=== PATIENT | female | born 1975 | race Hispanic/Latino ===

== ENCOUNTER 2018-12-14 07:31 | Outpatient (CLI) | payer OTHER ==
--- NOTE | 2018-12-14 09:04 | ULT ---
BILATERAL RENAL ULTRASOUND: Date: 12/14/18 HISTORY: Hypertension, diabetes, proteinuria. FINDINGS: The right kidney measures 11.5 cm in length and the left kidney measures 11.6 cm in length. No focal mass or hydronephrosis is seen on either side. Cortical echogenicity and thickness is normal. The uri nary bladder is unremarkable. IMPRESSION: Normal exam. POS: TREY
== END 2018-12-14 07:32 | disposition home or self-care (01) ==
LOC: BICULT 07:31
PROVIDERS: ATTEND Family Medicine
DX: I10 Essential (primary) hypertension (principal)
CPT/HCPCS: 76770

== ENCOUNTER 2019-06-08 14:04 | Outpatient (CLI) | payer OTHER ==
--- NOTE | 2019-06-08 14:53 | ULT ---
EXAM: Right lower extremity venous Doppler US HISTORY: Right lower extremity edema FINDINGS: Grayscale, color-flow, Doppler evaluation, spectral analysis of the right lower extremity venous stru ctures is performed with 2-D imaging. The right common femoral, superficial femoral, popliteal, posterior tibial, proximal greater saphenous and profunda femoral veins are imaged. There is normal luminal compressibility, flow, and augmentation the visualized deep venous structures of the right lower extremity. IMPRESSION: No evidence of a deep vein thrombosis in the right lower extremity.
== END 2019-06-08 14:05 | disposition home or self-care (01) ==
LOC: BICULT 14:04
PROVIDERS: ATTEND Student in an Organized Health Care Education/Training Program
DX: E11.9 Type 2 diabetes mellitus without complications (principal)

== ENCOUNTER 2020-01-31 10:03 | Inpatient (IN) | payer OTHER ==
[2020-01-31 11:05] LABS: #Basophils 0.1 thou/uL (0.0-0.2); #Eosinphils 0.3 thou/uL (0.0-0.7); #Lymphocytes 0.8 thou/uL (1.20-3.40); #Monocytes 0.3 thou/uL (0.11-0.59); #Neutrophils 5.3 thou/uL (1.40-6.50); %Eosinophils 3.9 % (0.0-10.0); %Lymphocytes 11.6 % (21.0-51.0); %Monocytes 4.7 % (0.0-10.0); %Neutrophils 78.8 % (42.0-75.0); Hemoglobin 8.3 g/dL (12.0-16.0); Mean Corpuscular HGB CONC 30.9 g/dL (32.0-36.0); Mean Corpuscular Hemoglobin 27.2 pg (27.0-31.0); Mean Corpuscular Volume 87.9 fL (78.0-98.0); Mean Platelet Volume 9.8 fL (7.4-10.4); Platelet Count 199 thou/uL (130-400); RBC Distribution Width 13.6 % (11.5-14.5); Red Blood Cell (RBC) Count 3.04 mill/uL (4.20-5.40); White Blood Cell (WBC) Count 6.7 thou/uL (4.8-10.8)
[2020-01-31] MEDS ORDERED: Furosemide 40 MG/4 ML VIAL ONE (11:06)
[2020-01-31] MEDS ORDERED: Metoclopramide HCl 10 MG/2 ML VIAL ONE (11:13)
[2020-01-31] MEDS ORDERED: PROPOFOL 200 MG/20 ML VIAL ONE (11:13)
[2020-01-31] MEDS ORDERED: Ondansetron PF 4 MG/2 ML Vial ONE (11:13)
[2020-01-31] MEDS ORDERED: Lidocaine 1% PF 5 ML VIAL ONE (11:13)
[2020-01-31 11:28] LABS: ALT (SGPT) 30 U/L (8-55); AST (SGOT) 29 U/L (5-34); Albumin 3.7 g/dL (3.5-5.0); Alkaline Phosphatase 171 U/L (40-110); Anion Gap 17 mmol/L (10-20); BUN (Urea Nitrogen) 91 mg/dL (7.0-18.7); Bilirubin, Total 0.4 mg/dL (0.2-1.2); Calc. Creatinine Clearance 0 mL/min (70-130); Calcium 8.8 mg/dL (7.8-10.44); Carbon Dioxide 18 mmol/L (22-29); Chloride 109 mmol/L (98-107); Estimated GFR-MDRD 5; Globulin 3.9 g/dL (2.4-3.5); Glucose 85 mg/dL (70-105); Magnesium 2.1 mg/dL (1.6-2.6); Phosphorus 6.8 mg/dL (2.3-4.7); Potassium 5.1 mmol/L (3.5-5.1); Protein, Total 7.6 g/dL (6.0-8.3); Sodium 139 mmol/L (136-145)
[2020-01-31 11:30] LABS: BHCG - Serum Negative (NEGATIVE); Pregs Control Background? CLEAR/WHITE (CLR/WHITE); Pregs Control Bar Appear? YES (CONTROL BAR)
--- NOTE | 2020-01-31 12:52 | PDOC.FPRHP ---
- History of Present Illness Chief Complaint: Leg swelling, shortness of breath History of Present Illness: 45 year old female with PMH Type II DM, CHF, HTN, PCOS, CKD stage [address] Flores office with lower extremity swelling and shortness of breath, ongoing for several weeks. She was seen at [facility] 01/21 for shortness of breath which has worsened since that time. Patient states she can barely move without becoming significantly short of breath. She denies associated chest pain. Patient sees Dr. Madera with Nephrology. She was told to increase her lasix to 80 mg BID a few days ago, but this has not been effective which is the reason for patient's admission/visit to ED today. Patient states she urinates about 4x/ day. This is less than normal. She states she only urinates a small amount each time. She cannot recall timeframe for which this decrease in urination has occurred. Patient states she discontinued lantus qhs due to low sugars in the morning. Since discontinuing lantus, her BG has been in the low 100's per patient. Patient denies cough, congestion, runny nose, abdominal pain. She endorses lower extremity swelling extending up to abdomen. She denies fever/ chills. She has had an ongoing discussion with nephrology regarding need for dialysis. Given medications are no longer working to control fluid status, decision was made to proceed with dialysis. Dr. Phelps has been consulted and is going to place tunneled catheter. ED Course: Lasix 80 mg IV - Allergies/Adverse Reactions Allergies Allergy/AdvReac Type Severity Reaction Status Date / Time No Known Allergies Allergy Verified 12/21/19 14:23 - Home Medications Medication Instructions Recorded Confirmed Type Aspirin [Ecotrin] 81 mg PO DAILY 01/31/20 01/31/20 History Atorvastatin Calcium 40 mg PO DAILY 01/31/20 01/31/20 History Cholecalciferol (Vitamin D3) 400 units PO DAILY 01/31/20 01/31/20 History [Vitamin D3] Linagliptin [Tradjenta] 5 mg PO DAILY 01/31/20 01/31/20 History NIFEdipine [Nifedipine ER] 60 mg PO BID 01/31/20 01/31/20 History Nebivolol HCl [Bystolic] 20 mg PO DAILY 01/31/20 01/31/20 History - History PMHx: CKD stage 5, Gastroparesis, HTN, DM type II, Obesity, PCOS PSHx: C/S x1 FHx: Mostly unknown. Knows grandmother and grandfather have diabetes and HTN. Social: Roque alcohol, tobacco, drug use - Review of Systems General: reports: weight/appetite/sleep changes (increased weight). denies: fever/chills ENT: denies: nasal congestion, rhinorrhea Respiratory: denies: cough, congestion, shortness of breath Cardiovascular: reports: edema. denies: chest pain, palpitation Gastrointestinal: denies: nausea, vomiting, constipation, abdominal pain Genitourinary: denies: dysuria Skin: denies: rashes, jaundice Musculoskeletal: denies: pain, tenderness Neurological: denies: numbness, syncope Psychological: denies: anxiety, depression - Vital signs BP: 147/86 HR: 75 RR: 25 Tmax: 97.7 Pox: 94% on RA Wt: 99.79 kg - Physical Exam Constitutional: NAD, awake, alert and oriented, well developed HEENT: EOMI, grossly normal vision, grossly normal hearing Heart: RRR, pulses present -Heart: 2+ pitting edema to level of thighs bilaterally, 1/6 systolic murmur -Lungs: Difficult exam due to body habitus, crackles appreciated in bases bilaterally, mildly tachypneic Abdomen: soft, non-tender -Abdomen: Obese Neurological: no focal deficit, CN II-XII intact Skin: no rash/lesions, capillary refill <2 seconds Heme/Lymphatic: no unusual bruising or bleeding, no purpura Psychiatric: normal mood and affect, good judgment and insight, intact recent and remote memory FMR H&P: Results - Labs Result Diagrams: 01/31/20 10:45 01/31/20 10:45 Lab results: WBC 6.7 thou/uL (4.8-10.8) 01/31/20 10:45 Hgb 8.3 g/dL (12.0-16.0) L 01/31/20 10:45 Hct 26.8 % (36.0-47.0) L 01/31/20 10:45 MCV 87.9 fL (78.0-98.0) 01/31/20 10:45 Plt Count 199 thou/uL (130-400) 01/31/20 10:45 Neutrophils % 78.8 % (42.0-75.0) H 01/31/20 10:45 Sodium 139 mmol/L (136-145) 01/31/20 10:45 Potassium 5.1 mmol/L (3.5-5.1) 01/31/20 10:45 Chloride 109 mmol/L (98-107) H 01/31/20 10:45 Carbon Dioxide 18 mmol/L (22-29) L 01/31/20 10:45 BUN 91 mg/dL (7.0-18.7) H 01/31/20 10:45 Creatinine 8.39 mg/dL (0.6-1.1) H 01/31/20 10:45 Glucose 85 mg/dL (70-105) 01/31/20 10:45 Calcium 8.8 mg/dL (7.8-10.44) 01/31/20 10:45 Total Bilirubin 0.4 mg/dL (0.2-1.2) 01/31/20 10:45 AST 29 U/L (5-34) 01/31/20 10:45 ALT 30 U/L (8-55) 01/31/20 10:45 Alkaline Phosphatase 171 U/L (40-110) H 01/31/20 10:45 B-Natriuretic Peptide 900.6 pg/mL (0-100) H 01/31/20 10:45 Serum Total Protein 7.6 g/dL (6.0-8.3) 01/31/20 10:45 Albumin 3.7 g/dL (3.5-5.0) 01/31/20 10:45 - EKG Interpretation EKG: NSR, QT 471, No ST or T wave changes FMR H&P: A/P - Problem List (1) End stage renal disease Current Visit: Yes Status: Acute Code(s): N18.6 - END STAGE RENAL DISEASE (2) HTN (hypertension) Current Visit: Yes Status: Acute Code(s): I10 - ESSENTIAL (PRIMARY) HYPERTENSION (3) Heart failure Current Visit: Yes Status: Acute Code(s): I50.9 - HEART FAILURE, UNSPECIFIED (4) IDDM (insulin dependent diabetes mellitus) Current Visit: No Status: Chronic Code(s): E11.9 - TYPE 2 DIABETES MELLITUS WITHOUT COMPLICATIONS; Z79.4 - DETENTION (CURRENT) USE OF INSULIN - Plan 45 year old female with shortness of breath and leg swelling ESRD - Sent over by Dr. Madera/Antoinette - In need of dialysis; tunneled cath to be placed by Dr. Phelps - Will go for dialysis - Monitor kidney function and fluid status - BNP 900 - Fluid restriction - Permanent access to be initiated during hospitalization - Will consult case management to initiate outpatient dialysis bed placement - PPD testing and HepB screening to be done for patient to get outpatient dialysis placement HTN - Continue medications - Patient to start dialysis today - Monitor BP DM type II - Continue home medications - ACHS accuchecks - CC diet HFpEF - Echo to be repeated; pending - Fluid restriction - Daily weights DVT PPX: Heparin Code Status: Full Dispo: Admit to telemetry. Patient to start dialysis. Monitor respiratory status. Addendum - Attending - Attending Attestation Date/Time: 01/31/20 4810 I personally evaluated the patient and discussed the management with Dr. Christina. I agree with the History, Examination, Assessment and Plan documented above with any addition or exceptions noted below.
[2020-01-31] MEDS ORDERED: Sodium Chloride 0.9% 10 ML ONE ×2 (13:16→18:03)
[2020-01-31] MEDS ORDERED: Lidocaine 2% w/Epinephrine 1:200K 20 ML VIAL ONE (13:16)
[2020-01-31] MEDS ORDERED: Bupivacaine PF 0.5% 30 ML VIAL ONE (13:16)
[2020-01-31] MEDS ORDERED: Heparin 10,000 UNITS/1 ML VIAL ONE (13:16)
[2020-01-31] MEDS ORDERED: PROPOFOL 40 ML ONE (13:31)
[2020-01-31] MEDS ORDERED: Midazolam HCl 2 mg/2 ml Vial ONE (13:31)
[2020-01-31] MEDS ORDERED: Fentanyl 100 MCG/2 ML VIAL ONE ×2 (13:31→18:01)
[2020-01-31 13:48] LABS: HBSAB Concentration 2.64 mIU/mL; HBSAg Index 0.17 S/CO (0-0.99); Hep B Core Total Ab Non-Reactive (NonReactive); Hep B Core Total Index 0.06 S/CO (0-0.79); Hep B Surf AB Non-Reactive (NonReactive); Hep B Surf Ag Non-Reactive S/CO (NonReactive); Hep C IgG Ab Non-Reactive (NonReactive); Hep C Index 0.24 S/CO (0-0.79)
--- NOTE | 2020-01-31 13:51 | CON ---
DATE OF CONSULTATION: 01/31/2020 HISTORY OF PRESENT ILLNESS: Ny Raman is a 45-year-old female, morbidly obese, diabetic, hypertensive, followed by Dr. Madera for chronic kidney disease for some time now, presents to emergency room with anasarca, slight dyspnea, uremic. White count 6 and hemoglobin 8.3. Sodium 139, potassium 5.1, carbon dioxide 18, BUN 91, creatinine 8.39, GFR 5. The patient is n.p.o. She has no known exposures nor symptoms for COVID. I have recommended a hemodialysis catheter and central line. She had a left AC IV present that I had the nurses removed immediately. We will obtain ultrasound vein mapping. We will plan definitive dialysis access next week. ALLERGIES: NONE. SOCIAL HISTORY: Tobacco, none. Alcohol, none. MEDICATIONS: Metformin, caplet complete vitamins, labetalol 300 mg b.i.d., p.r.n. ibuprofen, ferrous sulfate, Pepcid, Augmentin, she is on Tradjenta. PAST SURGICAL HISTORY: in 2014. PAST MEDICAL HISTORY: Diabetes, hypertension, obesity. REVIEW OF SYSTEMS: Ten-point noncontributory. PHYSICAL EXAMINATION: VITAL SIGNS: Blood pressure 160/80, respiratory rate 18, heart rate 80. HEAD, EARS, EYES, NOSE, AND THROAT: Unremarkable. LUNGS: Clear to auscultation. CARDIAC: Regular rate and rhythm without murmur or gallop. ABDOMEN: Soft and obese. EXTREMITIES: Edematous. Palpable radial pulses. Left AC IV removed. LABORATORY DATA: As noted above. ASSESSMENT AND PLAN: 1. Chronic kidney disease culminating to end-stage renal disease, in need of dialysis access and IV access. We will plan placement of a cuffed hemodialysis catheter to initiate dialysis as well as a central line for IV access. We will plan definitive fistula next week. This will allow them to dialyze her over the next few days. 2. Morbid obesity. 3. Metabolic syndrome. 4. Hypertension. 5. Diabetes mellitus. Job ID: [id number]
--- NOTE | 2020-01-31 14:04 | RAD ---
CHEST 1 VIEW: HISTORY: Shortness of breath. COMPARISON: None. FINDINGS: Heart size is enlarged. Large effusions. Mild background edema. No pneumothorax. No acute osseous abnormality. IMPRESSION: Moderate volume overload. POS: [facility]DI
--- NOTE | 2020-01-31 14:12 | CON ---
DATE OF CONSULTATION: 01/31/2020 CONSULTING PHYSICIAN: Fritz Boyd DO REASON FOR CONSULTATION: End-stage renal disease evaluation and care. REASON FOR ADMISSION: Shortness of breath and fluid overload. HISTORY OF PRESENT ILLNESS: A 45-year-old female who has a history of type 2 diabetes, hypertension, and CKD, came to the hospital with above complaints and is being evaluated. The patient is having elevated creatinine. Plan is to start on dialysis. The patient does follow with Dr. Madera. PAST MEDICAL HISTORY: Positive for CKD, stage 5; gastroparesis; hypertension; type 2 diabetes; and obesity. PAST SURGICAL HISTORY: . HOME MEDICATIONS: Reviewed. ALLERGIES: NO KNOWN DRUG ALLERGIES. SOCIAL HISTORY: No smoking, alcohol, or illicit drug abuse. FAMILY HISTORY: No history of kidney disease. REVIEW OF SYSTEMS: The following complete review of systems was negative, unless otherwise mentioned in the HPI or below: CONSTITUTIONAL: Weight loss or gain, ability to conduct usual activities. SKIN: Rash, itching. EYES: Double vision, pain. ENT/MOUTH: Nose bleeding, neck stiffness, pain, tenderness. CARDIOVASCULAR: Palpitations, dyspnea on exertion, orthopnea. RESPIRATORY: Shortness of breath, wheezing, cough, hemoptysis, fever or night sweats. GASTROINTESTINAL: Poor appetite, abdominal pain, heartburn, nausea, vomiting, constipation, or diarrhea. GENITOURINARY: Urgency, frequency, dysuria, nocturia. MUSCULOSKELETAL: Pain, swelling. NEUROLOGIC/PSYCHIATRIC: Anxiety, depression. ALLERGY/IMMUNOLOGIC: Skin rash, bleeding tendency. PHYSICAL EXAMINATION: GENERAL: Reveals an obese female, in no apparent distress. VITAL SIGNS: Temperature is 97.7, pulse 75, respiratory rate 20, and blood pressure . HEENT: Atraumatic, normocephalic. NECK: Supple. CARDIOVASCULAR: S1 and S2 heard. RESPIRATORY: Reduced breath sounds. GASTROINTESTINAL: Abdomen is soft. Obese. MUSCULOSKELETAL: 1+ edema. DERMATOLOGIC: No skin rash. NEUROLOGIC: Alert and awake. PSYCHIATRIC: Mood and affect normal. LABORATORY DATA: Hemoglobin is 8.3. Potassium 5.1, BUN is 91, creatinine is 8.3. ASSESSMENT AND PLAN: 1. End-stage renal disease. Plan to start on dialysis. 2. Edema. We will remove fluid. 3. Acidosis. 4. Mild hyperkalemia. 5. History of hypertension. 6. Elevated BNP. 7. Anemia of chronic disease. Plan is to start on dialysis. We will have Case Management consult for outpatient dialysis placement. Appreciate help from Surgery. We will start her on dialysis once access was placed. All the plans discussed with the patient, and all the questions answered. Thank you for the consult. We will follow. Job ID: [id number]
[2020-01-31] MEDS ORDERED: Ondansetron HCl/PF 4 MG/2 ML Vial IVP PRN (17:05)
[2020-01-31] MEDS ORDERED: Promethazine HCl 25 MG/ML VIAL IM PRN (17:05)
[2020-01-31] MEDS ORDERED: Promethazine HCl 25 MG/ML VIAL SLOW IVP PRN (17:05)
[2020-01-31] MEDS ORDERED: traMADol HCl 50 MG TAB PO PRN (17:21)
[2020-01-31] MEDS ORDERED: Acetaminophen 500 MG TAB PO PRN (17:21)
[2020-01-31] MEDS ORDERED: Ondansetron PF 4 MG/2 ML Vial IVP PRN (17:32)
[2020-01-31] MEDS ORDERED: Tuberculin PPD 0.1 ML VIAL I-DERMAL SCH (17:32)
[2020-01-31] MEDS ORDERED: Ondansetron ODT 4 MG TAB PO PRN (17:32)
--- NOTE | 2020-01-31 18:04 | OP ---
DATE OF PROCEDURE: 01/31/2020 PREOPERATIVE DIAGNOSES: 1. End-stage renal disease. 2. Metabolic syndrome. 3. Diabetes. 4. Hypertension. 5. Need of acute dialysis access. 6. Fluid overload. POSTOPERATIVE DIAGNOSES: 1. End-stage renal disease. 2. Metabolic syndrome. 3. Diabetes. 4. Hypertension. 5. Need of acute dialysis access. 6. Fluid overload. PROCEDURES PERFORMED: 1. Right internal jugular cuffed tunneled hemodialysis catheter, pre-curved AngioDynamics. 2. Left internal jugular triple-lumen catheter, ultrasound and fluoroscopy used. ANESTHESIA: Intravenous sedation and local with 0.5% Marcaine 30 mL mixed with 2% Xylocaine with epinephrine 20 mL. DESCRIPTION OF PROCEDURE: The patient was taken to the operating room, where under intravenous sedation, neck and chest were prepared with ChloraPrep and draped in routine fashion. Local anesthetic was infiltrated in the skin and subcutaneous tissue about the operative site. Ultrasound to visualize both the right and left internal jugular veins, and using a trocar catheter, J-wire was introduced into both jugular veins and skin was enlarged sharply on each side. Stab incision was made over the right chest. Seldinger technique used to place a triple-lumen catheter, placed in the left internal jugular vein and catheter secured with 3-0 nylon suture. Dermabond and sterile dressing applied. Each port aspirated blood, flushed with saline solution. A stab incision was made over the right chest. Using the tunneling device, the pre-curved AngioDynamics catheter tunneled between the 2 incisions, placed the fabric cuff beneath the skin exit site, catheter secured with 2 interrupted suture of 3-0 nylon. Small and medium-sized dilators placed over the J-wire in the internal jugular vein and removed. Dilator and Peel-Away sheath placed over the J-wire into the superior vena cava. Dilator and J-wire removed. Catheter placed with the Peel-Away sheath. Peel-Away sheath was removed. Platysma was approximated with 4-0 Monocryl, skin with subdermal 4-0 Monocryl and [place] glue. Sterile dressings applied. Each port aspirated blood, flushed with saline solution and heparinized saline solution with 1000 units of heparin per mL, indicating volume of the port. Fluoroscopic images revealed good line placement. The patient tolerated the procedure well without complications. Job ID: [id number]
--- NOTE | 2020-01-31 18:56 | RAD ---
PORTABLE CHEST: 01/31/20 HISTORY: Catheter placement. CCU patient with follow-up. Comparison made to portable film performed earlier this morning at 10:47 a.m. Cardiomegaly with bilateral effusions and bibasilar atelectasis again noted. A central line via the left jugular is now in place and has tip overlying the right atrium. There is a dual lumen large central line via the right jugular which also has tip overlying the right atrium. IMPRESSION: Bilateral central lines are now in place. The bilateral effusions and bibasilar opacification has not significantly changed when compared to film earlier today. POS: AGW
--- NOTE | 2020-01-31 20:01 | ULT ---
BILATERAL UPPER EXTREMITY VENOUS DUPLEX EXAM FOR VENOUS MAPPING. 01/31/20 INDICATION: Ultrasound of upper extremity veins performed to assess fistula access. End-stage renal disease. RIGHT UPPER EXTREMITY BRACHIAL ARTERY: 0.44 mm RADIAL ARTERY: 0.28 mm ULNAR ARTERY: 0.20 mm CEPHALIC VEIN Axilla: 0.38 mm Proximal humerus: 0.39 mm Mid Humerus: 0.38 mm Distal Humerus: 0.52 mm Elbow: 0.23 mm Mid Forearm: 0.19 mm BASILIC VEIN Axilla: 0.29 mm Proximal humerus: 0.28 mm Mid Humerus: 0.27 mm Distal Humerus: 0.25 mm Elbow: 0.11 mm Mid Forearm: 0.11 mm LEFT UPPER EXTREMITY BRACHIAL ARTERY: 0.43 mm RADIAL ARTERY: 0.24 mm ULNAR ARTERY: 0.25 mm CEPHALIC VEIN Axilla: 0.46 mm Proximal humerus: 0.37 mm Mid Humerus: 0.32 mm Distal Humerus: 0.45 mm Elbow: 0.18 mm Mid Forearm: 0.18 mm BASILIC VEIN Axilla: 0.18 mm Proximal humerus: 0.19 mm Mid Humerus: 0.23 mm Distal Humerus: 0.21 mm Elbow: 0.19 mm Mid Forearm: 0.14 mm POS: AGW
[2020-02-01 04:13] LABS: #Eosinphils 0.2 thou/uL (0.0-0.7); #Lymphocytes 0.7 thou/uL (1.20-3.40); #Monocytes 0.4 thou/uL (0.11-0.59); #Neutrophils 6.1 thou/uL (1.40-6.50); %Basophils 0.6 % (0.0-1.0); %Eosinophils 3.2 % (0.0-10.0); %Lymphocytes 9.9 % (21.0-51.0); %Monocytes 4.7 % (0.0-10.0); %Neutrophils 81.7 % (42.0-75.0); Hemoglobin 7.3 g/dL (12.0-16.0); Mean Corpuscular HGB CONC 30.6 g/dL (32.0-36.0); Mean Corpuscular Hemoglobin 27.3 pg (27.0-31.0); Mean Corpuscular Volume 89.1 fL (78.0-98.0); Platelet Count 137 thou/uL (130-400); RBC Distribution Width 13.6 % (11.5-14.5); Red Blood Cell (RBC) Count 2.65 mill/uL (4.20-5.40); White Blood Cell (WBC) Count 7.4 thou/uL (4.8-10.8)
[2020-02-01 04:34] LABS: Anion Gap 13 mmol/L (10-20); BUN (Urea Nitrogen) 67 mg/dL (7.0-18.7); Calc. Creatinine Clearance 18 mL/min (70-130); Carbon Dioxide 21 mmol/L (22-29); Chloride 107 mmol/L (98-107); Estimated GFR-MDRD 7; Glucose 93 mg/dL (70-105); Potassium 4.3 mmol/L (3.5-5.1); Sodium 137 mmol/L (136-145)
--- NOTE | 2020-02-01 07:12 | PDOC.FM ---
- Subjective Subjective: Breathing much improved and swelling as well. No chest pain, no complaints this morning - Objective MAR Reviewed: Yes Vital Signs & Weight: Vital Signs (12 hours) Temp Pulse Resp BP Pulse Ox 02/01/20 04:00 98.9 F 77 18 133/70 92 L 02/01/20 00:40 97.4 F L 75 18 150/79 H 01/31/20 23:43 94.3 F L 78 21 H 163/90 H 95 Weight Weight 104.961 kg I&O: 01/31/20 02/01/20 02/02/20 06:59 06:59 06:59 Intake Total 360 Balance 360 Result Diagrams: 02/01/20 03:55 02/01/20 03:54 Phys Exam - Physical Examination Constitutional: NAD resting comfortably on nasal cannula HEENT: moist MMs R tunnel catheter, left IJ Respiratory: no wheezing s3 gilma Gastrointestinal: soft 2+ edema up to inguinal area, bilaterally Neurological: non-focal, moves all 4 limbs Dx/Plan (1) Diabetes mellitus Code(s): E11.9 - TYPE 2 DIABETES MELLITUS WITHOUT COMPLICATIONS Status: Acute (2) Fluid overload Code(s): E87.70 - FLUID OVERLOAD, UNSPECIFIED Status: Acute (3) End stage renal disease Code(s): N18.6 - END STAGE RENAL DISEASE Status: Acute (4) HTN (hypertension) Code(s): I10 - ESSENTIAL (PRIMARY) HYPERTENSION Status: Acute (5) Heart failure Code(s): I50.9 - HEART FAILURE, UNSPECIFIED Status: Acute (6) Hypertension affecting Code(s): O16.9 - UNSPECIFIED MATERNAL HYPERTENSION, UNSPECIFIED TRIMESTER Status: Chronic - Plan Plan: 45 year old female with shortness of breath and leg swelling Fluid overload 2/2 ESRD - Right tunnel cath placed 01/30, vein mapping completed. Plan for fistula next week - Nephro & Gen surg on board, recs appreciated - Had HD 01/30 with 3L removed, plan for HD this morning Cardiac tamponade, likely subacute from uremia -Seen on TTE -Hemodynamically stable -Uremia possible underlying etiology -Will consult cards this AM, recs appreciated Anemia, normocytic -Hb 7.3, likely anemia of chronic disease but will check iron studies HTN - Continue medications - Continue HD per nephro - Monitor BP DM type II - Continue home medications - ACHS accuchecks - CC diet HFpEF - Echo with moderate pericardial effusion & cardiac tamponade-right atrial collapse - Fluid restriction - Daily weights DVT PPX: Heparin Code Status: Full Dispo: >2 midnights Addendum - Attending - Attending Attestation Date/Time: 02/01/20 2295 I personally evaluated the patient and discussed the management with Dr. Denis. I agree with the History, Examination, Assessment and Plan documented above with any addition or exceptions noted below. Patient feeling well, getting HD. She has evidence of tamponade on TTE which has been discussed with cardiology. Due to her stability they are wanting to hold off on any drainage until they can evaluate her. Will need outpatient HD placement.
[2020-02-01] MEDS ORDERED: Docusate 100 MG CAP PO PRN (09:06)
--- NOTE | 2020-02-01 09:59 | PDOC.BPN ---
- Brief Progress Note Discussed case with Dr. Mcelroy over phone and concern for cardiac tamponade with atrial collapse. Dr. Mcelroy has already discussed with Dr. Blair and since patient is clinically improved with HD, BPs stable, there is no need for urgent intervention at this time and okay to undergo HD to see if she improves. He plans to see her this morning to further assess.
[2020-02-01] MEDS ORDERED: traMADol HCl 50 MG TAB PO PRN (11:32)
--- NOTE | 2020-02-01 12:52 | PRG ---
DATE OF SERVICE: 02/01/2020 SUBJECTIVE: Patient was seen and examined at bedside and overnight events noted. Patient denies any shortness of breath or chest pain or palpitation. No history of nausea or vomiting or diarrhea or fever or chills or cramps. OBJECTIVE: GENERAL: This is a well-built female, in no apparent distress. VITAL SIGNS: Temperature . Respiratory rate . Blood pressure 175/97. HEENT: Atraumatic, normocephalic. Oral mucosa is moist. Neck: Supple. CARDIOVASCULAR: S1, S2 heard. Rate and rhythm regular. RESPIRATORY: Clear to auscultation. GASTROINTESTINAL: Abdomen is soft. MUSCULOSKELETAL: No tenderness. No edema. DERMATOLOGIC: No skin rash. NEUROLOGIC: Alert and awake and oriented x3. No focal neurologic deficits. Moving all the extremities. PSYCHIATRIC: Mood and affect normal. LABORATORY DATA: Potassium 4.3, BUN is 67, and creatinine is 6.7. ASSESSMENT AND PLAN: 1. End-stage renal disease. Continue dialysis as tolerated. 2. Edema. We will remove fluid. 3. Acidosis. 4. Mild hyperkalemia. 5. Hypertension. 6. Elevated BNP. 7. Anemia of chronic disease. The patient was seen during dialysis, tolerating well. Follow with Case Management for outpatient placement. Job ID: [id number]
[2020-02-01] MEDS ORDERED: Nebivolol HCl 5 MG TAB PO SCH (13:45)
[2020-02-01] MEDS ORDERED: NIFEdipine XL 60 MG TAB PO SCH ×2 (13:45→21:00)
--- NOTE | 2020-02-01 14:26 | EKG ---
Test Reason : Blood Pressure : / mmHG Vent. Rate : 075 BPM Atrial Rate : 075 BPM P-R Int : 132 ms QRS Dur : 078 ms QT Int : 422 ms P-R-T Axes : -01 018 038 degrees QTc Int : 471 ms Normal sinus rhythm Cannot rule out Anterior infarct , age undetermined Abnormal ECG Confirmed by KATARINA TUCKER DO ([id number]), nozzle tender GISELLE BULLOCK ([id number]) on 02/01/2020 2:25:26 PM Referred By: Confirmed By:KATARINA TUCKER DO
[2020-02-01] MEDS ORDERED: Tuberculin PPD 0.1 ML VIAL I-DERMAL SCH (14:30)
[2020-02-02 05:05] LABS: Anion Gap 16 mmol/L (10-20); BUN (Urea Nitrogen) 43 mg/dL (7.0-18.7); Calc. Creatinine Clearance 24 mL/min (70-130); Carbon Dioxide 20 mmol/L (22-29); Chloride 107 mmol/L (98-107); Estimated GFR-MDRD 10; Glucose 94 mg/dL (70-105); Sodium 138 mmol/L (136-145)
--- NOTE | 2020-02-02 05:42 | CON ---
DATE OF CONSULTATION: 02/01/2020 REASON FOR CONSULTATION: Pericardial effusion. 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 Raman is a very pleasant 45-year-old female, who comes to the hospital for worsening shortness of breath and leg swelling. She is followed by Dr. Madera in Nephrology for chronic kidney disease stage 5. She has been having worsening of her shortness of breath and lower extremity swelling for the last 3 to 4 weeks. She states that her breathing got to the point where she could barely move without feeling short winded, so she decided to come in for evaluation. She has been getting increasing doses of Lasix without any diuresis, so she was admitted and started on hemodialysis. After starting hemodialysis and getting some fluid out, her breathing has significantly improved. During her initial evaluation, an echocardiogram was done that showed a pericardial effusion which was moderate in size with some right atrial collapse, which could be consistent with cardiac tamponade and severe mitral regurgitation. Cardiology is being consulted for this. On my evaluation, Ms. Raman denies any chest pain, tightness, or pressure. She does not feel short of breath anymore. When I am seeing her this morning, she was finishing on her second day of dialysis and she tells me she is feeling significantly better. Her blood pressure has never been low, actually been high in the 160s to 170s. No syncope or presyncope. Significant improvement of her symptoms of shortness of breath and edema with two dialysis treatments. PAST MEDICAL HISTORY: 1. Chronic kidney disease stage 5, probably end-stage renal disease now. 2. Gastroparesis. 3. Hypertension. 4. Type 2 diabetes. 5. Obesity. 6. PCOS. PAST SURGICAL HISTORY: section x1. FAMILY HISTORY: Noncontributory. SOCIAL HISTORY: No alcohol, tobacco, or drugs. OUTPATIENT MEDICATIONS: 1. Aspirin 81 mg a day. 2. Atorvastatin 40 mg at bedtime. 3. Vitamin D3. 4. Tradjenta. 5. Nifedipine 60 mg b.i.d. 6. Nebivolol 20 mg a day. ALLERGIES: NO KNOWN DRUG ALLERGIES. REVIEW OF SYSTEMS: A 12-point review of systems was done and was all negative unless stated in the history of present illness. PHYSICAL EXAMINATION: VITAL SIGNS: Temperature 99.1, pulse 86, respiratory rate 18, sat 98% on 2 L nasal cannula, blood pressure 175/97. GENERAL: Awake, alert, oriented x3. No distress. HEENT: Normocephalic and atraumatic. NECK: Supple. LUNGS: Clear. No JVD. CARDIOVASCULAR: S1 and S2. No S3, S4. Loud sounding S1 and S2. No muffled heart sounds. ABDOMEN: Soft. Positive bowel sounds. EXTREMITIES: Trace edema. SKIN: Warm and dry. LABORATORY DATA: Laboratory work was reviewed. White count of 6, hemoglobin is 8.3, hematocrit of 26, platelet count of 199. Chemistries with sodium of 137, potassium 4.3, chloride of 107, carbon dioxide of 21, BUN of 67, creatinine 6.72 down from 8.39 yesterday on admission. test was negative. TSH was normal. BNP was 900. Echocardiogram was reviewed. EF was at 60% to 65%. There was a moderate-sized pericardial effusion and a left-sided pleural effusion. Right atrial seemed to collapse, which would indicate cardiac tamponade. Clinical correlation is always recommended on this. ASSESSMENT: 1. Pericardial effusion. Clinically, there is no evidence of tamponade. 2. Chronic kidney disease stage 5, now end-stage. 3. Anasarca, improved after dialysis. 4. Hypertension. 5. Type 2 diabetes. PLAN: 1. No indication for evacuation of this fluid at this time. We will plan on re-evaluating her effusion with an echo tomorrow to see if there has been any improvement. I expect her right atrial pressures to decrease with improved fluid status and if that were the case, the pressure in the right side would allow more collapse of the right atrium and if tamponade is the case, would see marked collapse of the right atrium. We will find out tomorrow, but clinically she is not hypotensive. She does not have muffled heart sounds. No JVD. She has significant improvement of her symptoms with hemodialysis which tells me this was just part of her anasarca. 2. Continue hemodialysis per Primary Team. 3. Echocardiogram tomorrow. 4. We will follow. Thank you for letting me participate in the care of this patient. Job ID: [id number]
--- NOTE | 2020-02-02 07:35 | PDOC.FM ---
- Subjective Subjective: Patient reports breathing improved. Still dyspneic in talking with me. Denies chest pain, reports improved LE swelling. Had 2.2L taken off at HD yesterday. - Objective DEC Reviewed: Yes Vital Signs & Weight: Vital Signs (12 hours) Temp Pulse Resp BP Pulse Ox 02/02/20 03:38 98.6 F 78 18 163/84 H 94 L 02/02/20 00:09 96 02/01/20 23:56 77 124/75 02/01/20 19:38 96 02/01/20 19:32 98.1 F 78 14 170/95 H 96 Weight Admit Weight 104.961 kg Weight 100.6 kg I&O: 02/01/20 02/02/20 02/03/20 06:59 06:59 06:59 Intake Total 360 720 Balance 360 720 Result Diagrams: 02/02/20 08:01 02/02/20 04:36 Phys Exam - Physical Examination Constitutional: NAD HEENT: moist MMs, sclera anicteric bibasilar crackles Cardiovascular: RRR s3 Gastrointestinal: soft 2+ edema in BLE Neurological: non-focal, moves all 4 limbs Psychiatric: normal affect, A&O x 3 Dx/Plan (1) Diabetes mellitus Code(s): E11.9 - TYPE 2 DIABETES MELLITUS WITHOUT COMPLICATIONS Status: Acute (2) Fluid overload Code(s): E87.70 - FLUID OVERLOAD, UNSPECIFIED Status: Acute (3) End stage renal disease Code(s): N18.6 - END STAGE RENAL DISEASE Status: Acute (4) HTN (hypertension) Code(s): I10 - ESSENTIAL (PRIMARY) HYPERTENSION Status: Acute (5) Heart failure Code(s): I50.9 - HEART FAILURE, UNSPECIFIED Status: Acute (6) Hypertension affecting Code(s): O16.9 - UNSPECIFIED MATERNAL HYPERTENSION, UNSPECIFIED TRIMESTER Status: Chronic - Plan Plan: 45 year old female with shortness of breath and leg swelling Acute hypoxic respiratory failure 2/2 ESRD fluid overload - Right tunnel cath placed 01/30, vein mapping completed. Plan for fistula next week per Gen Surg. Recs appreciated. - Had HD 01/30 with 3L removed. HD 01/31. Nephro on board, recs appreciated. Cardiac tamponade with severe mitral regurgitation -Seen on TTE, plan for repeat today -Hemodynamically stable -Uremia possible underlying etiology -Cardiology board, recs appreciated ESRD -Tunnel cath in place, HD, nephro on board -Plan for fistula Anemia, Mixed -Hb 7.3 -Iron 17, started ferrous sulfate -Will discuss with Dr. Farias starting EPO HTN - Resume home BP meds - Continue HD per nephro - Monitor BP DM type II - Continue home medications - ACHS accuchecks - CC diet HFpEF - Echo with moderate pericardial effusion & cardiac tamponade-right atrial collapse - Fluid restriction - Daily weights DVT PPX: Heparin Code Status: Full Dispo: >2 midnights Addendum - Attending - Attending Attestation Date/Time: 02/02/20 1117 I personally evaluated the patient and discussed the management with Dr. Denis. I agree with the History, Examination, Assessment and Plan documented above with any addition or exceptions noted below. Patient continues to improve. HD per Nephro, awaiting outpatient placement. Cardiology to repeat Echo today.
[2020-02-02 08:16] LABS: #Eosinphils 0.6 thou/uL (0.0-0.7); #Lymphocytes 1.5 thou/uL (1.20-3.40); #Monocytes 0.6 thou/uL (0.11-0.59); #Neutrophils 5.5 thou/uL (1.40-6.50); %Basophils 0.6 % (0.0-1.0); %Eosinophils 7.5 % (0.0-10.0); %Lymphocytes 17.8 % (21.0-51.0); %Monocytes 7.5 % (0.0-10.0); %Neutrophils 66.6 % (42.0-75.0); Hemoglobin 7.3 g/dL (12.0-16.0); Mean Corpuscular HGB CONC 31.3 g/dL (32.0-36.0); Mean Corpuscular Hemoglobin 27.1 pg (27.0-31.0); Mean Corpuscular Volume 86.6 fL (78.0-98.0); Mean Platelet Volume 10.2 fL (7.4-10.4); Platelet Count 138 thou/uL (130-400); RBC Distribution Width 13.4 % (11.5-14.5); Red Blood Cell (RBC) Count 2.71 mill/uL (4.20-5.40); White Blood Cell (WBC) Count 8.2 thou/uL (4.8-10.8)
[2020-02-02] MEDS ORDERED: READ PPD TEST SITE PO SCH (09:00)
--- NOTE | 2020-02-02 12:28 | PRG ---
DATE OF SERVICE: 02/02/2020 SUBJECTIVE: Patient was seen and examined at bedside and overnight events noted. Patient denies any shortness of breath or chest pain or palpitation. No history of nausea or vomiting or diarrhea or fever or chills or cramps. OBJECTIVE: GENERAL: This is a well-built female, in no apparent distress. VITAL SIGNS: Temperature 98.4. Heart Rate 77. Respiratory rate 18. Blood pressure 177/93. HEENT: Atraumatic, normocephalic. Oral mucosa is moist. NECK: Supple. CARDIOVASCULAR: S1, S2 heard. Rate and rhythm regular. RESPIRATORY: Clear to auscultation. GASTROINTESTINAL: Abdomen is soft. MUSCULOSKELETAL: No tenderness. No edema. DERMATOLOGIC: No skin rash. NEUROLOGIC: Alert and awake and oriented x3. No focal neurologic deficits. Moving all the extremities. PSYCHIATRIC: Mood and affect normal. LABORATORY DATA: Potassium 5.0, BUN is 43, and creatinine is 4.8. ASSESSMENT AND PLAN: 1. End-stage renal disease. Continue dialysis. 2. Edema. 3. Hypertension. 4. Mild hyperkalemia. 5. Anemia. We will start on Epogen. 6. Continue dialysis as tolerated. Job ID: [id number]
[2020-02-02] MEDS ORDERED: Recombivax (HEP-B) 5 MCG/0.5 ML VIAL IM ONE ×2 (12:30→15:07)
[2020-02-02] MEDS: Ferrous Sulfate 325 MG TAB PO SCH (15:03)
[2020-02-02] MEDS: Atorvastatin Calcium 40 MG TAB PO SCH (15:04)
[2020-02-02] MEDS: Alogliptin 25 MG TAB PO SCH (15:04)
[2020-02-02] MEDS: NIFEdipine XL 60 MG TAB PO SCH (15:05)
[2020-02-02] MEDS: Nebivolol HCl 5 MG TAB PO SCH (15:05)
[2020-02-02] MEDS: EPOETIN ALFA-EPBX (ESRD) 10,000 UNIT/ML VIAL IVP SCH (15:06)
--- NOTE | 2020-02-02 16:38 | PDOC.CPN ---
- Subjective Date: 02/02/20 Time: 16:36 Interval history: She feels better but still feels tired and SOB with max exertion, comfortable at rest. - Review of Systems General: reports: fatigue. denies: fever/chills, weight/appetite/sleep changes , night sweats Respiratory: reports: shortness of breath, exercise intolerance. denies: cough , congestion Cardiovascular: denies: chest pain, palpitation, edema, paroxysmal nocturnal dyspnea, orthopnea Gastrointestinal: denies: nausea, vomiting, diarrhea, constipation, abd pain, GI bleeding Musculoskeletal: denies: pain, tenderness, stiffness, swelling, arthritis/ arthralgias Neurological: denies: numbness, syncope, seizure, weakness - Objective Allergies/Adverse Reactions: Allergies Allergy/AdvReac Type Severity Reaction Status Date / Time No Known Allergies Allergy Verified 12/21/19 14:23 Visit Medications: Current Medications Acetaminophen (Tylenol) 1,000 mg PO Q6H PRN PRN Reason: Moderate to Severe Pain (6-10) Alogliptin Benzoate (Alogliptin) 25 mg PO DAILY [facility] Last Admin: 02/02/20 15:04 Dose: 25 mg Aspirin (Ecotrin) 81 mg PO DAILY [facility] Atorvastatin Calcium (Lipitor) 40 mg PO DAILY [facility] Last Admin: 02/02/20 15:04 Dose: 40 mg Cholecalciferol (Vitamin D) 400 units PO DAILY [facility] Docusate Sodium (Colace) 100 mg PO DAILYPRN PRN PRN Reason: Constipation Epoetin Prakash-epbx (Retacrit) 10,000 unit IVP TuThSa [facility] Last Admin: 02/02/20 15:06 Dose: 10,000 unit Ferrous Sulfate (Feosol) 325 mg PO QAM-WM [facility] Last Admin: 02/02/20 15:03 Dose: 325 mg Hepatitis B Vaccine (Engerix-B 20 Mcg/Ml Vial) 20 mcg IM .ONCE ONE Stop: 02/02/20 18:01 Nebivolol (Bystolic) 20 mg PO DAILY [facility] Last Admin: 02/02/20 15:05 Dose: 20 mg Nifedipine (Procardia Xl) 60 mg PO DAILY [facility] Last Admin: 02/02/20 15:05 Dose: 60 mg Read Ppd Test Site 0 each PO ONE [facility] Stop: 02/03/20 09:01 Ondansetron HCl (Zofran Odt) 4 mg PO Q6H PRN PRN Reason: Nausea/Vomiting Ondansetron HCl (Zofran) 4 mg IVP Q6H PRN PRN Reason: Nausea/Vomiting Tramadol HCl (Ultram) 50 mg PO Q12H PRN PRN Reason: Moderate Pain (4-6) Vital Signs & Weight: Vital Signs Temp Pulse Resp BP BP Pulse Ox 02/02/20 15:08 98.0 F 75 18 186/90 H 98 02/02/20 11:15 98.4 F 77 18 177/93 H 95 02/02/20 07:37 98.7 F 75 16 168/88 H 95 Admit Weight 231 lb 6.4 oz Weight 221 lb 12.56 oz - Physical Exam General: alert & oriented x3 HEENT: mucus membranes moist Neck: supple neck Cardiac: regular rate and rhythm Lungs: other (Reduced breath sounds at bases.) Neuro: grossly intact Abdomen: active bowel sounds Extremities: 1+ LE edema Skin: clear Musculoskeletal: no pain - Labs Result Diagrams: 02/02/20 08:01 02/02/20 04:36 - Telemetry Sinus rhythms and dysrhythmias: sinus rhythm - Assessment/Plan Assessment/Plan: 1. Pericardial effusion 2/. Pleural effusion 3. Anasarca 4. ESRD 5. New onset HD. PLAN; - Repeat echo today with stable effusion, not better, collapse of RA slightly better. - No clinical signs of tamponade. - Continue fluid control with HD. - Still significantly fluid up.
[2020-02-03 04:51] LABS: Anion Gap 13 mmol/L (10-20); BUN (Urea Nitrogen) 34 mg/dL (7.0-18.7); Calc. Creatinine Clearance 24 mL/min (70-130); Calcium 7.8 mg/dL (7.8-10.44); Carbon Dioxide 25 mmol/L (22-29); Chloride 102 mmol/L (98-107); Estimated GFR-MDRD 10; Glucose 84 mg/dL (70-105); Potassium 4.3 mmol/L (3.5-5.1); Sodium 136 mmol/L (136-145)
--- NOTE | 2020-02-03 07:20 | PDOC.FM ---
- Subjective Subjective: Patient breathing improved. Leg swelling improved. HD planned for today. No other concerns at this time. No CABALLERO, chest pain, vision changes - Objective MAR Reviewed: Yes Vital Signs & Weight: Vital Signs (12 hours) Temp Pulse Resp BP Pulse Ox 02/03/20 04:20 99.0 F 74 12 159/76 H 95 02/03/20 00:20 96 02/02/20 19:37 99.0 F 78 20 133/73 96 Weight Admit Weight 104.961 kg Weight 100.9 kg I&O: 02/02/20 02/03/20 02/04/20 06:59 06:59 06:59 Intake Total 720 960 Balance 720 960 Result Diagrams: 02/03/20 07:25 02/03/20 04:11 Phys Exam - Physical Examination Constitutional: NAD HEENT: moist MMs, sclera anicteric bibasilar crackles s3 gilma Gastrointestinal: soft Musculoskeletal: no edema Neurological: non-focal, moves all 4 limbs Psychiatric: normal affect, A&O x 3 Dx/Plan (1) Diabetes mellitus Code(s): E11.9 - TYPE 2 DIABETES MELLITUS WITHOUT COMPLICATIONS Status: Acute (2) Fluid overload Code(s): E87.70 - FLUID OVERLOAD, UNSPECIFIED Status: Acute (3) End stage renal disease Code(s): N18.6 - END STAGE RENAL DISEASE Status: Acute (4) HTN (hypertension) Code(s): I10 - ESSENTIAL (PRIMARY) HYPERTENSION Status: Acute (5) Heart failure Code(s): I50.9 - HEART FAILURE, UNSPECIFIED Status: Acute (6) Hypertension affecting Code(s): O16.9 - UNSPECIFIED MATERNAL HYPERTENSION, UNSPECIFIED TRIMESTER Status: Chronic - Plan Plan: 45 year old female with shortness of breath and leg swelling Acute hypoxic respiratory failure 2/2 ESRD fluid overload - Right tunnel cath placed 01/30, vein mapping completed. Plan for fistula next week per Gen Surg. Recs appreciated. - Had HD 01/30 with 3L removed. HD 01/31. HD again today. Nephro on board, recs appreciated. - Wean O2 as tolerated Cardiac tamponade with severe mitral regurgitation -Repeat TTE with moderate sized pericardial effusion with early signs of tamponade. Elevated RV pressure -Hemodynamically stable, cards recs appreciated -Uremia possible underlying etiology ESRD -Tunnel cath in place, HD, nephro on board -Plan for fistula Anemia, Mixed -Hb 7.3 -Iron 17, started ferrous sulfate -Started EPO 5/2 HTN - Resume home BP meds - Continue HD per nephro - Monitor BP DM type II - Continue home medications - ACHS accuchecks - CC diet HFpEF - Echo with moderate pericardial effusion & cardiac tamponade-right atrial collapse - Fluid restriction - Daily weights DVT PPX: Heparin Code Status: Full Dispo: >2 midnights Addendum - Attending - Attending Attestation Date/Time: 02/03/20 121 I personally evaluated the patient and discussed the management with Dr. Denis. I agree with the History, Examination, Assessment and Plan documented above with any addition or exceptions noted below. Patient feeling well. Continues to improve with new initation of HD for ESRD. She also has this possible cardiac tampanade for which she is stable and being followed by cardiology for serial TTE. Work on BP control and outpatient HD setup.
[2020-02-03 08:16] LABS: #Basophils 0.1 thou/uL (0.0-0.2); #Eosinphils 0.5 thou/uL (0.0-0.7); #Lymphocytes 1.4 thou/uL (1.20-3.40); #Monocytes 0.6 thou/uL (0.11-0.59); #Neutrophils 5.2 thou/uL (1.40-6.50); %Basophils 1.2 % (0.0-1.0); %Eosinophils 5.9 % (0.0-10.0); %Lymphocytes 17.5 % (21.0-51.0); %Monocytes 8.2 % (0.0-10.0); %Neutrophils 67.1 % (42.0-75.0); Hemoglobin 7.3 g/dL (12.0-16.0); Mean Corpuscular HGB CONC 31.1 g/dL (32.0-36.0); Mean Corpuscular Hemoglobin 27.3 pg (27.0-31.0); Mean Corpuscular Volume 87.6 fL (78.0-98.0); Platelet Count 123 thou/uL (130-400); RBC Distribution Width 13.3 % (11.5-14.5); Red Blood Cell (RBC) Count 2.69 mill/uL (4.20-5.40); White Blood Cell (WBC) Count 7.7 thou/uL (4.8-10.8)
[2020-02-03] MEDS ORDERED: Alogliptin 25 MG TAB PO SCH (09:00)
[2020-02-03] MEDS ORDERED: READ PPD TEST SITE PO SCH (09:00)
[2020-02-03] MEDS: Alogliptin 25 MG TAB PO SCH (09:34)
[2020-02-03] MEDS: Cholecalciferol (Vitamin D3) 400 UNITS TAB PO SCH (09:35)
[2020-02-03] MEDS: Aspirin 81 mg Enteric Coated Tablet PO SCH (09:35)
[2020-02-03] MEDS: Ferrous Sulfate 325 MG TAB PO SCH (09:43)
[2020-02-03] MEDS: Atorvastatin Calcium 40 MG TAB PO SCH (09:44)
[2020-02-03] MEDS: Nebivolol HCl 5 MG TAB PO SCH ×3 (09:46→12:53)
[2020-02-03] MEDS: NIFEdipine XL 60 MG TAB PO SCH ×2 (09:46→12:47)
--- NOTE | 2020-02-03 13:55 | PDOC.CPN ---
- Subjective Date: 02/03/20 Time: 13:54 Interval history: Doing ok. Unchanged from yesterday. Still fluid up significantly. - Review of Systems General: denies: fever/chills, weight/appetite/sleep changes, night sweats, fatigue Respiratory: reports: shortness of breath. denies: cough, congestion, exercise intolerance Cardiovascular: reports: edema. denies: chest pain, palpitation, paroxysmal nocturnal dyspnea, orthopnea Gastrointestinal: denies: nausea, vomiting, diarrhea, constipation, abd pain, GI bleeding Musculoskeletal: denies: pain, tenderness, stiffness, swelling, arthritis/ arthralgias Neurological: denies: numbness, syncope, seizure, weakness - Objective Allergies/Adverse Reactions: Allergies Allergy/AdvReac Type Severity Reaction Status Date / Time No Known Allergies Allergy Verified 12/21/19 14:23 Visit Medications: Current Medications Acetaminophen (Tylenol) 1,000 mg PO Q6H PRN PRN Reason: Moderate to Severe Pain (6-10) Alogliptin Benzoate (Alogliptin) 6.25 mg PO DAILY [facility] Aspirin (Ecotrin) 81 mg PO DAILY [facility] Last Admin: 02/03/20 09:35 Dose: 81 mg Atorvastatin Calcium (Lipitor) 40 mg PO DAILY [facility] Last Admin: 02/03/20 09:44 Dose: 40 mg Cholecalciferol (Vitamin D) 400 units PO DAILY [facility] Last Admin: 02/03/20 09:35 Dose: 400 units Docusate Sodium (Colace) 100 mg PO DAILYPRN PRN PRN Reason: Constipation Epoetin Prakash-epbx (Retacrit) 10,000 unit IVP TuThSa [facility] Last Admin: 02/02/20 15:06 Dose: 10,000 unit Ferrous Sulfate (Feosol) 325 mg PO QAM-WM [facility] Last Admin: 02/03/20 09:43 Dose: 325 mg Nebivolol (Bystolic) 20 mg PO DAILY [facility] Last Admin: 02/03/20 12:53 Dose: 20 mg Nifedipine (Procardia Xl) 60 mg PO DAILY [facility] Last Admin: 02/03/20 12:47 Dose: 60 mg Ondansetron HCl (Zofran Odt) 4 mg PO Q6H PRN PRN Reason: Nausea/Vomiting Ondansetron HCl (Zofran) 4 mg IVP Q6H PRN PRN Reason: Nausea/Vomiting Tramadol HCl (Ultram) 50 mg PO Q12H PRN PRN Reason: Moderate Pain (4-6) Vital Signs & Weight: Vital Signs Temp Pulse Resp BP BP Pulse Ox 02/03/20 12:47 73 176/87 H 02/03/20 12:00 98.2 F 73 16 176/87 H 96 02/03/20 09:46 74 178/95 H 02/03/20 08:00 98.9 F 76 16 178/95 H 95 02/03/20 04:20 99.0 F 74 12 159/76 H 95 Admit Weight 231 lb 6.4 oz Weight 222 lb 7.143 oz - Physical Exam General: alert & oriented x3 HEENT: mucus membranes moist Neck: supple neck Cardiac: regular rate and rhythm Lungs: decreased breath sounds Neuro: grossly intact Abdomen: active bowel sounds Extremities: other: (3+ edema bilat.) Skin: clear Musculoskeletal: no pain - Labs Result Diagrams: 02/03/20 07:25 02/03/20 04:11 - Telemetry Sinus rhythms and dysrhythmias: sinus rhythm - Assessment/Plan Assessment/Plan: 1. Pericardial effusion 2. Pleural effusion 3. Anasarca 4. ESRD 5. New onset HD. PLAN; - No clinical signs of tamponade. - Continue fluid control with HD. - Still significantly fluid up. - Would try to get more fluid out before discharge.
[2020-02-03] MEDS ORDERED: Labetalol HCl 100 MG/20 ML VIAL SLOW IVP PRN (16:30)
--- NOTE | 2020-02-03 16:34 | PRG ---
DATE OF SERVICE: 02/03/2020 SUBJECTIVE: Patient was seen and examined at bedside and overnight events noted. Patient denies any shortness of breath or chest pain or palpitation. No history of nausea or vomiting or diarrhea or fever or chills or cramps. OBJECTIVE: GENERAL: This is a well-built female, in no apparent distress. VITAL SIGNS: Temperature 98.2. Heart rate 73. Respiratory rate 16. Blood pressure 176/87. HEENT: Atraumatic, normocephalic. Oral mucosa is moist. NECK: Supple. CARDIOVASCULAR: S1, S2 heard. Rate and rhythm regular. RESPIRATORY: Clear to auscultation. GASTROINTESTINAL: Abdomen is soft. MUSCULOSKELETAL: No tenderness. No edema. DERMATOLOGIC: No skin rash. NEUROLOGIC: Alert and awake and oriented x3. No focal neurologic deficits. Moving all the extremities. PSYCHIATRIC: Mood and affect normal. LABORATORY DATA: Potassium 4.3, BUN is 34, and creatinine is 4.6. ASSESSMENT AND PLAN: 1. End-stage renal disease. Continue dialysis as tolerated. 2. Edema. 3. Hypertension. 4. Mild hyperkalemia . 5. Anemia of chronic disease. Continue Epogen. Continue dialysis as tolerated. Follow with Case Management for outpatient placement. Job ID: [id number]
[2020-02-04 04:50] LABS: #Basophils 0.1 thou/uL (0.0-0.2); #Eosinphils 0.5 thou/uL (0.0-0.7); #Lymphocytes 1.2 thou/uL (1.20-3.40); #Monocytes 0.6 thou/uL (0.11-0.59); #Neutrophils 5.7 thou/uL (1.40-6.50); %Basophils 0.9 % (0.0-1.0); %Eosinophils 6.4 % (0.0-10.0); %Lymphocytes 14.8 % (21.0-51.0); %Monocytes 7.5 % (0.0-10.0); %Neutrophils 70.3 % (42.0-75.0); Hemoglobin 7.5 g/dL (12.0-16.0); Mean Corpuscular HGB CONC 31.2 g/dL (32.0-36.0); Mean Corpuscular Hemoglobin 27.6 pg (27.0-31.0); Mean Corpuscular Volume 88.4 fL (78.0-98.0); Mean Platelet Volume 10.3 fL (7.4-10.4); Platelet Count 131 thou/uL (130-400); RBC Distribution Width 13.2 % (11.5-14.5); Red Blood Cell (RBC) Count 2.72 mill/uL (4.20-5.40); White Blood Cell (WBC) Count 8.2 thou/uL (4.8-10.8)
[2020-02-04] MEDS ORDERED: Propofol 500 MG/50 ML VIAL ONE (06:25)
[2020-02-04] MEDS ORDERED: Fentanyl 100 MCG/2 ML VIAL ONE ×2 (06:25→06:54)
[2020-02-04] MEDS ORDERED: Protamine Sulfate 50 MG/5 ML VIAL ONE (06:46)
[2020-02-04] MEDS ORDERED: Ondansetron HCl/PF 4 MG/2 ML Vial IVP PRN (06:46)
[2020-02-04] MEDS ORDERED: Heparin 5,000 UNITS/ML VIAL ONE (06:46)
[2020-02-04] MEDS ORDERED: Lidocaine 1% w/Epinephrine 1:100K 20 ML VIAL ONE (06:46)
[2020-02-04] MEDS ORDERED: Bupivacaine PF 0.5% 30 ML VIAL ONE (06:46)
[2020-02-04] MEDS ORDERED: Promethazine HCl 25 MG/ML VIAL IM PRN (06:46)
[2020-02-04] MEDS ORDERED: Promethazine HCl 25 MG/ML VIAL SLOW IVP PRN (06:46)
--- NOTE | 2020-02-04 06:52 | PDOC.FM ---
- Subjective Subjective: Feeling well. Denies SOB. Reports some throat irritation related to intubation for surgery. Tolerated dialysis well. Reports fistula placement was unsuccessful. - Objective MAR Reviewed: Yes Vital Signs & Weight: Vital Signs (12 hours) Temp Pulse Resp BP Pulse Ox 02/04/20 04:00 98.5 F 77 16 152/78 H 02/04/20 00:46 94 L 02/03/20 20:00 98.4 F 72 16 166/91 H 95 Weight Admit Weight 104.961 kg Weight 100.017 kg I&O: 02/02/20 02/03/20 02/04/20 06:59 06:59 06:59 Intake Total 223 569 8663 Balance 210 645 7575 Result Diagrams: 02/04/20 04:33 02/03/20 04:11 Dx/Plan - Plan Plan: 45yo female admitted for acute hypoxic resp failure Acute hypoxic respiratory failure /2 ESRD fluid overload - Right tunnel cath placed 01/30, vein mapping completed. Fistula placement unsuccessful - HD 01/30, 01/31, 02/02. Nephro on board, apprec recs - Wean O2 as tolerated Cardiac tamponade with severe mitral regurgitation - Repeat TTE with moderate sized pericardial effusion with early signs of tamponade. Elevated RV pressure - Hemodynamically stable, cards recs appreciated - Uremia possible underlying etiology ESRD - Tunnel cath in place, HD, nephro on board - Plan for fistula Anemia, Mixed - Hb 7.5 - Iron 17, started ferrous sulfate - Started EPO 02/01 HTN - Continue home BP meds - Continue HD per nephro DM type II - Continue home medications - ACHS accuchecks - CC diet HFpEF - Echo with moderate pericardial effusion & cardiac tamponade-right atrial collapse. No clinical signs. Cards following - Fluid restriction/Daily weights DVT PPX: Heparin Code Status: Full Addendum - Attending - Attending Attestation Date/Time: 02/04/20 1700 I personally evaluated the patient and discussed the management with Dr. Alexandre I agree with the History, Examination, Assessment and Plan documented above with any addition or exceptions noted below- Patient seen in hemodialysis. Denies any complaints. Afebrile VSS. A/P: 1) ESRD on HD- continue HD; plans as per surgery and nephrology. 2) HTN- continue home meds.
[2020-02-04] MEDS ORDERED: Midazolam HCl 2 mg/2 ml Vial ONE (06:54)
[2020-02-04] MEDS ORDERED: SUGAMMADEX SODIUM 200 MG/2 ML VIAL ONE (08:44)
[2020-02-04] MEDS ORDERED: Albuterol Sulfate HFA (OR ONLY) ONE (09:16)
[2020-02-04] MEDS ORDERED: Rocuronium Bromide 10 MG/ML (10ML VIAL) ONE (09:40)
[2020-02-04] MEDS ORDERED: PROPOFOL 200 MG/20 ML VIAL ONE (09:40)
[2020-02-04] MEDS ORDERED: Ondansetron PF 4 MG/2 ML Vial ONE (09:40)
--- NOTE | 2020-02-04 09:43 | OP ---
DATE OF PROCEDURE: 02/04/2020 PREOPERATIVE DIAGNOSIS: End-stage renal disease. POSTOPERATIVE DIAGNOSIS: End-stage renal disease. PROCEDURE PERFORMED: Left arm primary fistula. Ramona type wrist. Cephalic vein dilated with 3.5 mm coronary dilator. Proximal forearm explored. Vein was so large that wrist fistula formed as it was more than adequate contrary to vein mapping. ANESTHESIA: Failed regional general, local 0.5% Marcaine 30 mL, 1% Xylocaine with epinephrine 20 mL. DESCRIPTION OF PROCEDURE: The patient was taken to the operating room, where under partial regional anesthesia and converted to general, right upper extremity was prepared with ChloraPrep and draped in routine fashion. Vein mapping has suggested distal veins in wrist to be inadequate. Incision was made in the proximal volar forearm below the antecubital fossa, carried down through the skin and subcutaneous tissue and a very large antecubital vein identified. It was very large, thus incision was made at the wrist longitudinally and cephalic vein was more than adequate, dissected free, and distal vein ligated with 3-0 silk tie, divided, spatulated, and interrogated with coronary dilators, passing coronary dilators from 1.5-3 mm coronary dilator throughout the length of the dilator without obstruction. This flushed with heparinized saline solution. The patient was given 6000 units of heparin intravenously. Radial artery dissected free. Branches were divided between 4-0 silk ties and clips and proximal and distal control gained with vascular clamps. Longitudinal arteriotomy was made, elongated sharply for 2.5 cm anastomosis. End vein accordingly was spatulated and anastomosed to the radial artery with continuous suture of 6-0 Prolene completing the anastomosis. Vascular clamps were released. There was excellent flow in the fistula, interrogated by Doppler throughout the cephalic vein in the forearm. Good hemostasis was noted. Vein mobilized, proximal branches divided between clips and 4-0 silk ties and clips. All branches that I could see were divided or clipped. Doppler interrogation was noted. The patient was given 25 mg of protamine intravenously by Anesthesia. Subcutaneous tissues of both wounds were approximated with 3-0 Monocryl, skin with subdermal 4-0 Monocryl and [place] glue applied. Job ID: [id number]
--- NOTE | 2020-02-04 10:23 | PRG ---
DATE OF SERVICE: 02/04/2020 SUBJECTIVE: A 45-year-old female, being seen for end-stage renal disease. The patient denied nausea, vomiting, or chest pain. OBJECTIVE: General: The patient is awake and alert. Vital Signs: Afebrile, pulse 79, breathing 16, blood pressure 152/78. HEENT: Head normocephalic and atraumatic. Eyes intact, no ulcers. Nose intact, no ulcers. Ears intact, no ulcers. Neck: Supple. No JVD. Chest: Symmetrical and clear. Cardiovascular: Shows S1 and S2, no rub, no murmur. Gastrointestinal: Abdomen is soft, bowel sounds positive. Extremities: Show no edema or ulcers. Skin: Shows no rash or petechiae. Musculoskeletal: Shows no joint swelling or stiffness. Genitourinary: Shows no Pacheco or CVA tenderness. Neurologic: Motor intact. Cranial nerves intact. LABORATORY DATA: Hemoglobin 7.5. ASSESSMENT AND PLAN: 1. Stage 6 chronic kidney disease, plan dialysis. 2. Hypertension, stable. 3. Anemia. We will give Epogen. 4. Medications based on GFR are appropriate. Job ID: [id number]
[2020-02-04] MEDS: Alogliptin 6.25 MG TAB PO SCH (11:34)
[2020-02-04] MEDS: Atorvastatin Calcium 40 MG TAB PO SCH (17:17)
[2020-02-04] MEDS: Cholecalciferol (Vitamin D3) 400 UNITS TAB PO SCH (17:17)
[2020-02-04] MEDS: Aspirin 81 mg Enteric Coated Tablet PO SCH (17:17)
[2020-02-04] MEDS: Ferrous Sulfate 325 MG TAB PO SCH (17:18)
[2020-02-04] MEDS: NIFEdipine XL 60 MG TAB PO SCH (17:19)
[2020-02-04] MEDS ORDERED: Nebivolol HCl 5 MG TAB PO SCH (17:30)
--- NOTE | 2020-02-04 19:46 | PQF ---
DATE: 02-04-20 ATTN: DR. BLANCA JAY Please exercise your independent, professional judgment in responding to the clarification form. Clinical indicators are provided on the bottom of this form for your review Please check appropriate box(s): HEART FAILURE: A. ACUITY [ ] Acute [ x ] Acute on Chronic [ ] Chronic B. TYPE [ ] Systolic / HFrEF [x] Diastolic / HFpEF [ ] Combined Systolic / Diastolic [ ] Fluid overload due to ESRD ( Not due to CHF) [ ] Other diagnosis [ ] Unable to determine In addition, please specify: Present on Admission (POA): [x] Yes [ ] No [ ] Unable to determine For continuity of documentation, please document condition throughout progress notes and discharge summary. Thank You. CLINICAL INDICATORS - SIGNS / SYMPTOMS / LABS / RESULTS AND LOCATION IN EMR: H&P 02-04-20: HX OF CHF, DM 2, CKD5, PRESENTS WITH SOB AND LOWER EXTREMITY SWELLING, INCREASED WEIGHT H&P 02-04-20: ESRD, HTN, ACUTE HEART FAILURE, DM 2; IN NEED OF DIALYSIS, MONITOR KIDNEY AND FLUID STATUS, BNP 900, FLUID RESTRICTION, DAILY WEIGHTS ECHO 01-31-20: THERE IS MODERATE PERICARDIAL EFFUSION, L PLEURAL EFFUSION, EF ESTIMATED 60-65% RISKS FACTORS / RESULTS AND LOCATION IN EMR: H&P 02-04-20: HX OF CHF, DM 2, CKD5, PRESENTS WITH SOB AND LOWER EXTREMITY SWELLING, INCREASED WEIGHT TREATMENTS / RESULTS AND LOCATION IN EMR: H&P: 01-06-20: LASIX 80 MG IV ECHO 01-31-20 (This form is maintained as a part of the permanent medical record) 2014 [email or web address]. All Rights Reserved [email or web address]
--- NOTE | 2020-02-05 05:57 | PDOC.FM ---
- Subjective Subjective: Feeling well this morning. Tolerated dialysis yesterday. Denies SOB, chest pain. Reports diagnosed with DM in 2010 and CKD in 2017. - Objective MAR Reviewed: Yes Vital Signs & Weight: Vital Signs (12 hours) Temp Pulse Resp BP Pulse Ox 02/05/20 03:58 98.5 F 83 20 171/94 H 96 02/04/20 20:00 98.0 F 74 16 148/73 H 92 L Weight Admit Weight 104.961 kg Weight 97.7 kg I&O: 02/03/20 02/04/20 02/05/20 06:59 06:59 06:59 Intake Total 960 1840 790 Output Total 5000 Balance 960 1840 -4210 Result Diagrams: 02/05/20 07:23 02/03/20 04:11 Phys Exam - Physical Examination Constitutional: NAD HEENT: moist MMs Neck: supple Respiratory: no wheezing Cardiovascular: RRR, no significant murmur Gastrointestinal: soft, non-tender Musculoskeletal: edema present Neurological: moves all 4 limbs incisions from fistula attempt Psychiatric: normal affect Skin: no rash Dx/Plan - Plan Plan: 45yo female admitted for acute hypoxic resp failure Acute hypoxic respiratory failure 2/2 ESRD fluid overload - Right tunnel cath placed 01/30, vein mapping completed. Fistula placement unsuccessful - HD 01/30, 01/31, 02/02. Nephro on board, apprec recs - Wean O2 as tolerated Cardiac tamponade with severe mitral regurgitation - Repeat TTE with moderate sized pericardial effusion with early signs of tamponade. Elevated RV pressure - Hemodynamically stable, cards recs appreciated - Uremia possible underlying etiology ESRD - Tunnel cath in place, HD, nephro on board - Plan for fistula Anemia, Mixed - Hb 6.9, transfuse today, possibly with HD if she gets it today. - Started EPO 02/01, Continue ferrous sulfate HTN - Continue home BP meds, labetalol PRN - Continue HD per nephro DM type II - Continue home medications - ACHS accuchecks - CC diet HFpEF - Echo with moderate pericardial effusion & cardiac tamponade-right atrial collapse. No clinical signs. Cards following - Fluid restriction/Daily weights DVT PPX: Heparin Code Status: Full Addendum - Attending - Attending Attestation Date/Time: 02/05/20 1214 I personally evaluated the patient and discussed the management with Dr. Alexandre I agree with the History, Examination, Assessment and Plan documented above with any addition or exceptions noted below- Patient without complaints. Afebrile VSS. A/P: 1) ESRD - continue HD as per nephrology; awaiting approval for dialysis chair 2) Anemia- will transfuse 1u pRBCs. 3) HTN- continue to adjust meds.
[2020-02-05 07:33] LABS: #Basophils 0.1 thou/uL (0.0-0.2); #Eosinphils 0.6 thou/uL (0.0-0.7); #Lymphocytes 1.3 thou/uL (1.20-3.40); #Monocytes 0.1 thou/uL (0.11-0.59); #Neutrophils 8.5 thou/uL (1.40-6.50); %Basophils 0.9 % (0.0-1.0); %Eosinophils 5.4 % (0.0-10.0); %Lymphocytes 12.6 % (21.0-51.0); %Monocytes 0.9 % (0.0-10.0); %Neutrophils 80.1 % (42.0-75.0); Hemoglobin 6.9 g/dL (12.0-16.0); Mean Corpuscular HGB CONC 30.8 g/dL (32.0-36.0); Mean Corpuscular Hemoglobin 27.4 pg (27.0-31.0); Mean Corpuscular Volume 88.7 fL (78.0-98.0); Mean Platelet Volume 9.2 fL (7.4-10.4); Platelet Count 152 thou/uL (130-400); RBC Distribution Width 13.4 % (11.5-14.5); Red Blood Cell (RBC) Count 2.53 mill/uL (4.20-5.40); White Blood Cell (WBC) Count 10.6 thou/uL (4.8-10.8)
[2020-02-05] MEDS: Ferrous Sulfate 325 MG TAB PO SCH (08:57)
[2020-02-05] MEDS: Aspirin 81 mg Enteric Coated Tablet PO SCH (08:57)
[2020-02-05] MEDS: Nebivolol HCl 5 MG TAB PO SCH (08:57)
[2020-02-05] MEDS: NIFEdipine XL 60 MG TAB PO SCH ×2 (08:58→21:06)
[2020-02-05] MEDS: Cholecalciferol (Vitamin D3) 400 UNITS TAB PO SCH (08:58)
[2020-02-05] MEDS: Atorvastatin Calcium 40 MG TAB PO SCH (08:58)
[2020-02-05] MEDS: Alogliptin 6.25 MG TAB PO SCH (08:58)
--- NOTE | 2020-02-05 12:47 | PRG ---
DATE OF SERVICE: 02/05/2020 SUBJECTIVE: A 45-year-old female, being seen for end-stage renal disease. The patient denied nausea, vomiting, or chest pain. OBJECTIVE: General: The patient is awake, alert. Vital Signs: Afebrile, pulse 76, breathing 16, blood pressure 179/93. HEENT: Head normocephalic and atraumatic. Eyes intact, no ulcers. Nose intact, no ulcers. Ears intact, no ulcers. Neck: Supple. No JVD. Chest: Symmetrical and clear. Cardiovascular: Shows S1 and S2, no rub, no murmur. Gastrointestinal: Abdomen is soft, bowel sounds positive. Extremities: Show no edema or ulcers. Skin: Shows no rash or petechiae. Musculoskeletal: Shows no joint swelling or stiffness. Genitourinary: Shows no Pacheco or CVA tenderness. Neurologic: Motor intact. Cranial nerves intact. LABORATORY DATA: Reviewed. ASSESSMENT AND PLAN: 1. Stage 6 chronic kidney disease, continue hemodialysis. 2. Hypertension, stable. 3. Anemia, agree with transfusion. 4. Pericardial effusion and possible tamponade. I will plan regular dialysis and order 2D echo. This was discussed with Cardiology. Job ID: [id number]
[2020-02-05] MEDS: EPOETIN ALFA-EPBX (ESRD) 10,000 UNIT/ML VIAL IVP SCH (15:45)
--- NOTE | 2020-02-05 17:29 | PRG ---
DATE OF SERVICE: 02/05/2020 Ny Raman is doing well today. Postoperatively, her right Ramona fistula has good thrill and bruit. Incision was made in her proximal forearm below the antecubital fossa, finding a vein of excellent caliber, so large that exploration of the wrist was undertaken, and a large appropriate size vein appreciated contrary to ultrasound vein mapping preoperatively. Ramona fistula formed to the wrist. She has good hand function. She has good thrill and bruit in her Ramona fistula. At this point, she should exercise her arm without restraint. The patient can be discharged home anytime from a surgical standpoint once outpatient dialysis is arranged. I will see her in my office in 3 to 4 weeks. Job ID: [id number]
[2020-02-05 21:09] LABS: Hemoglobin 9.4 g/dL (12.0-16.0); Platelet Count 146 thou/uL (130-400)
--- NOTE | 2020-02-06 07:24 | PDOC.FM ---
- Subjective Subjective: Feeling well this morning, denies SOB, chest pain. - Objective MAR Reviewed: Yes Vital Signs & Weight: Vital Signs (12 hours) Temp Pulse Resp BP BP Pulse Ox 02/06/20 05: 94 L 02/06/20 04:00 98.8 F 86 20 162/80 H 92 L 02/05/20 23:30 82 161/89 H 02/05/20 21:02 98.7 F 78 16 162/84 H 96 Weight Admit Weight 104.961 kg Weight 95.8 kg I&O: 02/05/20 02/06/20 02/07/20 06:59 06:59 06:59 Intake Total 790 1600 Output Total 5000 Balance -4210 1600 Result Diagrams: 02/05/20 20:50 02/03/20 04:11 Phys Exam - Physical Examination Constitutional: NAD HEENT: moist MMs Neck: supple Respiratory: no wheezing, clear to auscultation bilateral Cardiovascular: RRR Right arm fistula with bruit and thrill Gastrointestinal: soft, non-tender Musculoskeletal: pulses present Neurological: non-focal, moves all 4 limbs Psychiatric: normal affect, A&O x 3 Skin: no rash Dx/Plan - Plan Plan: 45yo female admitted for acute hypoxic resp failure Acute hypoxic respiratory failure 2/2 ESRD fluid overload - Right tunnel cath placed 01/30. Fistula in R arm 02/03 - HD 01/30, 01/31, 02/02. Nephro on board, apprec recs - Wean O2 as tolerated - Dialysis today Moderate pericardial effusion 2/2 Uremia with severe mitral regurgitation - Repeat echo with moderate sized pericardial effusion with early signs of tamponade. Elevated RV pressure - Hemodynamically stable, cards recs appreciated - Plan for echo today and daily dialysis. ESRD - Tunnel cath in place, HD, nephro on board. Dialysis today - Fistula 02/03 Anemia, Mixed - Hb 6.9-> 9.4 s/p 1U pRBCs - Continue EPO 5/2 and ferrous sulfate HTN - Continue home BP meds, labetalol PRN - Continue HD per nephro DM type II - Continue home meds - ACHS accuchecks - CC diet HFpEF - Echo with moderate pericardial effusion & cardiac tamponade-right atrial collapse. No clinical signs. Cards following - Fluid restriction/Daily weights DVT PPX: Heparin Code Status: Full Addendum - Attending - Attending Attestation Date/Time: 02/06/20 1212 I personally evaluated the patient and discussed the management with Dr. Alexandre I agree with the History, Examination, Assessment and Plan documented above with any addition or exceptions noted below - Patient without complaints. Denies any SOB. Afebrile VSS. A/P: 1) ESRD on HD - continue daily HD as per nephrology. 2) Pericardial effusion- repeat echo shows moderate pericardial effusion but no cardiac tamponade. D/c planning - as per nephrology. Outpatient chair arranged.
--- NOTE | 2020-02-06 11:45 | PRG ---
DATE OF SERVICE: 02/06/2020 SUBJECTIVE: A 45-year-old female being seen for end-stage renal disease. The patient denied nausea, vomiting, or chest pain. OBJECTIVE: General: The patient is awake and alert. Vital Signs: Afebrile, pulse 75, breathing at 16, blood pressure 162/80. HEENT: Head normocephalic and atraumatic. Eyes intact, no ulcers. Nose intact, no ulcers. Ears intact, no ulcers. Neck: Supple. No JVD. Chest: Symmetrical and clear. Cardiovascular: Shows S1 and S2, no rub, no murmur. Gastrointestinal: Abdomen is soft, bowel sounds positive. Extremities: Show no edema or ulcers. Skin: Shows no rash or petechiae. Musculoskeletal: Shows no joint swelling or stiffness. Genitourinary: Shows no Pacheco or CVA tenderness. Neurologic: Motor intact. Cranial nerves intact. LABORATORY DATA: Hemoglobin 9.4. ASSESSMENT AND PLAN: 1. Stage 6 chronic kidney disease. Plan dialysis. 2. Hypertension, stable. 3. Anemia, stable. 4. Pericardial effusion. Plan dialysis 4 to 5 times a week. Job ID: [id number]
[2020-02-06] MEDS: Cholecalciferol (Vitamin D3) 400 UNITS TAB PO SCH (13:00)
[2020-02-06] MEDS: Aspirin 81 mg Enteric Coated Tablet PO SCH (13:00)
[2020-02-06] MEDS: Nebivolol HCl 5 MG TAB PO SCH (13:00)
[2020-02-06] MEDS: Ferrous Sulfate 325 MG TAB PO SCH (13:00)
[2020-02-06] MEDS: Atorvastatin Calcium 40 MG TAB PO SCH (13:00)
[2020-02-06] MEDS: NIFEdipine XL 60 MG TAB PO SCH ×2 (13:01→20:06)
[2020-02-06] MEDS: Alogliptin 6.25 MG TAB PO SCH (13:02)
--- NOTE | 2020-02-06 13:07 | PRG ---
DATE OF SERVICE: 02/06/2020 SUBJECTIVE: Ny Raman is doing well today. I am seeing her during dialysis. OBJECTIVE: VITAL SIGNS: Stable. ASSESSMENT AND PLAN: Two days ago, she underwent placement of a hemodialysis catheter and a dialysis fistula. This fistula has a good thrill and bruit. It is Ramona type. This is at the wrist. At this point, I will see her as an outpatient. Please call if necessary. She has a followup appointment to see me in 3 to 4 weeks. She should excise her arm without restriction. Job ID: [id number]
[2020-02-06 13:09] VITALS: BMI 41.2
[2020-02-06] MEDS ORDERED: Lisinopril 10 MG TAB PO SCH (15:30)
[2020-02-07] MEDS: NIFEdipine XL 60 MG TAB PO SCH (06:47)
--- NOTE | 2020-02-07 06:48 | PDOC.FM ---
- Subjective Subjective: Feeling well this morning. Receiving dialysis. Denies SOB, chest pain. BM 2 days ago. - Objective DEC Reviewed: Yes Vital Signs & Weight: Vital Signs (12 hours) Temp Pulse Resp BP BP Pulse Ox 02/07/20 04:19 95 02/07/20 02:53 98.4 F 80 18 144/77 H 92 L 02/06/20 23:37 75 139/77 02/06/20 20:42 94 L 02/06/20 20:02 98.2 F 75 16 161/85 H 94 L Weight Admit Weight 104.961 kg Weight 94.999 kg I&O: 02/05/20 02/06/20 02/07/20 06:59 06:59 06:59 Intake Total 790 1600 690 Output Total 5000 Balance -4210 1600 690 Result Diagrams: 02/05/20 20:50 02/03/20 04:11 Phys Exam - Physical Examination Constitutional: NAD HEENT: moist MMs Neck: supple Respiratory: no wheezing, clear to auscultation bilateral Cardiovascular: RRR, no significant murmur Gastrointestinal: soft, non-tender Neurological: moves all 4 limbs Psychiatric: normal affect, A&O x 3 Skin: no rash Dx/Plan - Plan Plan: 45yo female admitted for acute hypoxic resp failure Acute hypoxic respiratory failure 2/2 ESRD fluid overload - Right tunnel cath placed 01/30. Fistula in R arm 02/03 - Continue HD and weaning O2. Moderate pericardial effusion 2/2 Uremia - Continue daily dialysis - Hemodynamically stable, cards recs appreciated ESRD - Tunnel cath in place, HD, nephro on board. - Fistula 5/4 Anemia, Mixed - Hb 6.9-> 9.4 s/p 1U pRBCs - Continue EPO 5/2 and ferrous sulfate HTN - Continue max dose nifedipine and BB, labetalol PRN - Started on lisinopril yesterday DM type II - Continue home meds - CC diet HFpEF - Cards following, apprec recs - Fluid restriction/Daily weights DVT PPX: Heparin Code Status: Full Addendum - Attending - Attending Attestation Date/Time: 02/07/20 3736 I personally evaluated the patient and discussed the management with Dr. Alexandre I agree with the History, Examination, Assessment and Plan documented above with any addition or exceptions noted below - Patient in HD; Denies any complaints. Afebrle VSS. A/P: 1) 1) ESRD- continue HD as per nephrology. D/c planning in progress. 2) HTN- BP improved with current regimen.
--- NOTE | 2020-02-07 07:32 | PRG ---
DATE OF SERVICE: 02/07/2020 SUBJECTIVE: This is a 45-year-old female, being seen for end-stage renal disease. The patient denies nausea, vomiting, or chest pain. OBJECTIVE: GENERAL: The patient is awake and alert. VITAL SIGNS: Afebrile, pulse 75, breathing at 16, blood pressure 144/72. HEENT: Head normocephalic and atraumatic. Eyes intact, no ulcers. Nose intact, no ulcers. Ears intact, no ulcers. NECK: Supple. No JVD. CHEST: Symmetrical and clear. CARDIOVASCULAR: Shows S1 and S2, no rub, no murmur. GASTROINTESTINAL: Abdomen is soft, bowel sounds positive. EXTREMITIES: Show no edema or ulcers. SKIN: Shows no rash or petechiae. MUSCULOSKELETAL: Shows no joint swelling or stiffness. GENITOURINARY: Shows no Pacheco or CVA tenderness. NEUROLOGIC: Motor intact. Cranial nerves intact. ASSESSMENT AND PLAN: 1. Stage 6 chronic kidney disease. Continue hemodialysis. 2. Hypertension, stable. 3. Anemia, stable. 4. Medication based on GFR, appropriate. Discharge planning is in progress. Job ID: [id number]
[2020-02-07] MEDS ORDERED: Lisinopril 10 MG TAB PO SCH (09:00)
[2020-02-07] MEDS: EPOETIN ALFA-EPBX (ESRD) 10,000 UNIT/ML VIAL IVP SCH (10:35)
[2020-02-07] MEDS: Ferrous Sulfate 325 MG TAB PO SCH (12:33)
[2020-02-07] MEDS: Aspirin 81 mg Enteric Coated Tablet PO SCH (12:33)
[2020-02-07] MEDS: Nebivolol HCl 5 MG TAB PO SCH (12:33)
[2020-02-07] MEDS: Atorvastatin Calcium 40 MG TAB PO SCH (12:33)
[2020-02-07] MEDS: Alogliptin 6.25 MG TAB PO SCH (12:33)
[2020-02-07] MEDS: Cholecalciferol (Vitamin D3) 400 UNITS TAB PO SCH (12:34)
[2020-02-07 13:22] VITALS: BP 132/70; TEMP 98.6
--- NOTE | 2020-02-08 06:53 | DIS ---
DATE OF ADMISSION: 01/31/2020 DATE OF DISCHARGE: 02/07/2020 RESIDENT: Cici Alexandre MD, PGY-2 DISCHARGE ATTENDING: Latoya Vasques MD CONSULTS: 1. Nephrology, Dr. Madera and Dr. Farias. 2. General Surgery, Dr. Phelps. 3. Cardiology, Dr. Mcelroy. PROCEDURES: Chest x-ray on 01/31/2020. Moderate volume overload. Right internal jugular cuffed tunneled hemodialysis catheter pre-curved, [employer]. Left internal jugular triple lumen catheter, ultrasound and fluoroscopy guided on 01/31/2020. Chest x-ray on 01/31/2020, bilateral central lines in place. Bilateral effusions and bibasilar opacification, not significantly changed. Ultrasound of upper extremity veins for fistula access on 01/31/2020. Echocardiogram on 01/31/2020, moderate pericardial effusion. Left pleural effusion. EF 60% to 65%. Right atrial collapse consistent with cardiac tamponade. Severe mitral regurg. [id number] tricuspid regurg. Echocardiogram on 02/02/2020 , EF 60% to 65%. Grade 2/3 diastolic dysfunction. Diastolic collapse of right atria consistent with early tamponade physiology. Moderate mitral regurg. Elevated right ventricular systolic pressure estimated at 48 mmHg. Moderate pleural effusion. Moderate pericardial effusion. Left arm primary fistula 02/04/2020. DISCHARGE MEDICATIONS: 1. Aspirin 81 mg daily. 2. Atorvastatin 40 mg daily. 3. Vitamin D3 of 400 units daily. 4. EPO 10,000 units Tuesday, , Tuesday. 5. Ferrous sulfate 325 mg q.a.m. 6. Alogliptin 6.25 mg p.o. daily. 7. Bystolic 20 mg daily. 8. Nifedipine 60 mg b.i.d. 9. Tylenol 1 g p.o. q.6 hours p.r.n. DISCONTINUED MEDICATIONS: Tradjenta, it is unclear if this was switched to alogliptin just for formulary in the hospital, this can be followed up with the patient's PCP. HISTORY OF PRESENT ILLNESS/HOSPITAL COURSE: Ms. Raman is a 45-year-old female with past medical history of type 2 diabetes, CHF, hypertension, CKD stage 5, presented from Dr. Madera's office with shortness of breath. The patient's workup was consistent with end-stage renal disease requiring hemodialysis. The patient agreed to proceeding with dialysis. Dr. Phelps was consulted for tunneled catheter placement. She did receive Lasix 80 mg IV in the ER. She had already tried double her usual dose b.i.d. p.o. at home with no improvement. Diabetes and hypertension are likely the cause of her end-stage renal disease. She has been diagnosed with diabetes since 2009 and hypertension shortly after. Reported not having treatment until 2014, when she received 10 months of treatment due to followed by another 2 years of uncontrolled diabetes and hypertension. Reported in 2017, she had an A1c greater than 14 and signs of kidney disease. In the ER, she was noted to have 2+ pitting edema, 1/6 systolic murmur. Initial labs were notable for hemoglobin 8.3, hematocrit 26.8, creatinine 8.39, GFR 5, phosphorus 6.8, potassium 5.1. BNP 900.6. She received 3 rounds of dialysis via a tunneled catheter while inpatient. She had a fistula placed in the left arm and outpatient dialysis was established at [facility] in [place]. She received PPD testing and hep B screen which were negative. In regard to her hypertension, she was continued on her home medications and was diuresed with hemodialysis. Blood pressures were still somewhat uncontrolled at discharge, this can be followed up with her PCP. Blood pressure , systolic at 180s at discharge. She was asymptomatic. Her type 2 diabetes controlled with a.c. and h.s. Accu-Cheks and alogliptin. Her blood sugars were fairly well controlled. She was noted to have a drop in hemoglobin to 6.9 on the day of discharge, she was transfused with 1 unit prior to discharge and she was started on EPO and ferrous sulfate. We would recommend rechecking outpatient. On echocardiogram, she was noted to have a moderate- sized pericardial effusion with early signs of tamponade and elevated RV pressures. She was hemodynamically stable and Cardiology was following. They did not recommend Cardiovascular Surgery consult. The underlying etiology could possibly be uremia. Would recommend following up outpatient. DISPOSITION: Stable. DISCHARGE INSTRUCTIONS: 1. Location, home. 2. Diet, renal high-protein. 3. Activity, no restrictions. 4. Follow up with: a. Cardiac rehab. b. [facility]. chito Phelps in 3 to 4 weeksShante Blair in 3 to 4 weeks. [facility]. Job ID: [id number] MTDD
--- NOTE | 2020-02-08 17:23 | DIS ---
DATE OF ADMISSION: 01/31/2020 DATE OF DISCHARGE: 02/07/2020 RESIDENT: Cici Alexandre MD, PGY2 ADMITTING ATTENDING: Pilo Appiah MD DISCHARGE ATTENDING: Latoya Vasques MD CONSULTS: 1. Cardiology, Dr. Mcelroy. 2. Surgery, Dr. Phelps. PROCEDURES: 1. Chest x-ray 01/31/2020, moderate volume overload. 2. Chest x-ray 01/31/2020, bilateral central lines are now in place. The bilateral effusions and bibasilar opacification have not significantly changed when compared to the film earlier today. 3. Marking ultrasound 01/31/2020, ultrasound of upper extremity veins performed to assess the fistula access. End-stage renal disease. 4. Echocardiogram 01/31/2020, moderate pericardial effusion. Left pleural effusion. EF 60% to 65%. Right atrial collapse consistent with cardiac tamponade. Severe mitral regurg present. [id number] tricuspid regurgitation. 5. Echocardiogram 02/02/2020, EF 60% to 65%. Grade 2/3 diastolic dysfunction. Moderately dilated left atrium. Diastolic collapse of right atrium consistent with early tamponade physiology. Moderate mitral regurg. Elevated right ventricular systolic pressure 48 mmHg. Moderate sized pleural effusion. Moderate sized pericardial effusion. 6. Surgery 02/04/2020, left arm primary fistula. 7. Echocardiogram 02/06/2020, EF 50% to 55%. Diastolic dysfunction. Moderate to severe mitral regurgitation. Moderate circumferential pericardial effusion noted. No evidence of cardiac tamponade. DISCHARGE MEDICATIONS: 1. Tylenol 1 g p.o. q.6 hours p.r.n. 2. Aspirin 81 mg daily. 3. Atorvastatin 40 mg daily. 4. Vitamin D3 of 400 units daily. 5. Colace 100 mg daily p.r.n. 6. Ferrous sulfate 325 mg daily. 7. Alogliptin 6.25 mg daily. 8. Lisinopril 10 mg daily. 9. Bystolic 20 mg daily. 10. Nifedipine 60 mg b.i.d. 11. EPO. DISCONTINUED MEDICATION: Tradjenta. HISTORY OF PRESENT ILLNESS/HOSPITAL COURSE: The patient received dialysis daily including 02/06, day of discharge with expectation for uremia to improve with dialysis four times weekly for the first month and then three times weekly. This will help reduce the pericardial effusion. She will need to follow up with Dr. Blair outpatient in 2 to 3 weeks to re-evaluate. She has outpatient dialysis scheduled for 02/09/2020. DISPOSITION: Stable. DISCHARGE INSTRUCTIONS: 1. Location: Home. 2. Diet: Renal, high-protein, carb consistent. 3. Activity: No restrictions. 4. Followup: With cardiac rehab. [facility], 02/09/2020. Dr. Phelps in [address] Blair in 2 to 3 weeks. [place] [facility] within 1 week. Job ID: [id number]
== END 2020-02-07 18:03 | disposition home or self-care (01) | DRG 264 ==
LOC: ERS 10:03 → SDC/OP 14:11 → ERS 15:40 → 2NO 17:50
PROVIDERS: ADMIT Student in an Organized Health Care Education/Training Program; ATTEND Student in an Organized Health Care Education/Training Program
PROC: 5A1D70Z Performance of Urinary Filtration, Intermittent, Less than 6 Hours Per Day (ICD-10-PCS; 2020-01-31)
PROC: 0JH63XZ Insertion of Tunneled Vascular Access Device into Chest Subcutaneous Tissue and Fascia, Percutaneous Approach (ICD-10-PCS; 2020-01-31)
PROC: 05HN33Z Insertion of Infusion Device into Left Internal Jugular Vein, Percutaneous Approach (ICD-10-PCS; 2020-01-31)
PROC: B5141ZA Fluoroscopy of Left Jugular Veins using Low Osmolar Contrast, Guidance (ICD-10-PCS; 2020-01-31)
PROC: B544ZZA Ultrasonography of Left Jugular Veins, Guidance (ICD-10-PCS; 2020-01-31)
PROC: 30233N1 Transfusion of Nonautologous Red Blood Cells into Peripheral Vein, Percutaneous Approach (ICD-10-PCS; 2020-01-31)
PROC: 03170ZD Bypass Right Brachial Artery to Upper Arm Vein, Open Approach (ICD-10-PCS; principal; 2020-02-04)
DX: I13.2 Hypertensive heart and chronic kidney disease with heart failure and with stage 5 chronic kidney disease, or end stage renal disease (principal); N18.6 End stage renal disease; J96.01 Acute respiratory failure with hypoxia; I50.33 Acute on chronic diastolic (congestive) heart failure; I31.3 Pericardial effusion (noninflammatory); Z68.41 Body mass index [BMI] 40.0-44.9, adult; E87.2 Acidosis; E87.70 Fluid overload, unspecified; I08.1 Rheumatic disorders of both mitral and tricuspid valves; E11.22 Type 2 diabetes mellitus with diabetic chronic kidney disease; D63.1 Anemia in chronic kidney disease; E87.5 Hyperkalemia; E28.2 Polycystic ovarian syndrome; E11.43 Type 2 diabetes mellitus with diabetic autonomic (poly)neuropathy; K31.84 Gastroparesis; E66.01 Morbid (severe) obesity due to excess calories; Z79.4 Long term (current) use of insulin; Z99.2 Dependence on renal dialysis
CPT/HCPCS: 36415; 36416; 36430; 71045; 80048; 80053; 82728; 83540; 83735; 83880; 84100; 84443; 84703; 85025; 86580; 86704; 86706; 86803; 86850; 86900; 86901; 87340; 90746; 90935; 93005; 93306; 93798; 93970; 94002; 96374; C1752; C1769; G0257; G0365; J0690; J1642; J1644; J1940; J2001; J2250; J2405; J2704; J2720; J2765; J3010; P9016; Q5105; S0020

== ENCOUNTER 2021-07-27 07:05 | Observation (INO) | payer OTHER, MEDICARE ==
[2021-07-27 07:38] LABS: Pregnancy Test - Urine (BHCG) Negative (Negative); Pregu Control Background? CLEAR/WHITE (CLR/WHITE); Pregu Control Bar Appear? YES (CONTROL BAR); Specific Gravity 1.009 (1.002-1.036)
[2021-07-27 07:41] LABS: Bacteria/HPF None Seen HPF (None Seen); Bilirubin Negative (Negative); Blood, Urine Trace (Negative); Clarity Clear (Clear); Glucose, Urine (Dipstick) >=1000 mg/dL (Negative); Ketone, Urine Negative (Negative); Leukocyte Negative Leu/uL (Negative); Nitrite Negative (Negative); Protein, Urine (Dipstick) 300 mg/dL (Neg-Trace); RBC/HPF 0-3 HPF (0-3); Specific Gravity, Urine 1.009 (1.002-1.036); Urobilinogen Normal mg/dL (Less than 2); WBC/HPF 0-3 HPF (0-3); pH, Urine 8.5 (5.0-9.0)
[2021-07-27 08:23] LABS: #Basophils 0.1 thou/uL (0.0-0.2); #Eosinphils 0.2 thou/uL (0.0-0.7); #Lymphocytes 1.4 thou/uL (1.20-3.40); #Monocytes 0.6 thou/uL (0.11-0.59); #Neutrophils 13.5 thou/uL (1.40-6.50); %Basophils 0.4 % (0.0-1.0); %Eosinophils 1.2 % (0.0-10.0); %Lymphocytes 8.6 % (21.0-51.0); %Monocytes 3.9 % (0.0-10.0); Hemoglobin 10.9 g/dL (12.0-16.0); Mean Corpuscular HGB CONC 33.8 g/dL (32.0-36.0); Mean Corpuscular Hemoglobin 32.3 pg (27.0-31.0); Mean Corpuscular Volume 95.6 fL (78.0-98.0); Mean Platelet Volume 9.4 fL (7.4-10.4); Platelet Count 260 thou/uL (130-400); RBC Distribution Width 12.2 % (11.5-14.5); Red Blood Cell (RBC) Count 3.37 mill/uL (4.20-5.40); White Blood Cell (WBC) Count 15.7 thou/uL (4.8-10.8)
[2021-07-27] MEDS ORDERED: Morphine 4 MG/ML VIAL ONE (08:35)
[2021-07-27 08:43] LABS: ALT (SGPT) 17 U/L (8-55); AST (SGOT) 10 U/L (5-34); Albumin 3.9 g/dL (3.5-5.0); Alkaline Phosphatase 81 U/L (40-110); Anion Gap 18 mmol/L (10-20); BUN (Urea Nitrogen) 50 mg/dL (7.0-18.7); Bilirubin, Total 0.6 mg/dL (0.2-1.2); Calc. Creatinine Clearance 0 mL/min (70-130); Calcium 9.3 mg/dL (7.8-10.44); Carbon Dioxide 24 mmol/L (22-29); Chloride 97 mmol/L (98-107); Globulin 3.6 g/dL (2.4-3.5); Glucose 214 mg/dL (70-105); Protein, Total 7.5 g/dL (6.0-8.3); Sodium 134 mmol/L (136-145)
[2021-07-27] MEDS ORDERED: Iopamidol-370 76% 500 ML 1 ML ONE (09:23)
[2021-07-27] MEDS ORDERED: Ondansetron PF 4 MG/2 ML Vial ONE ×2 (09:42→16:10)
[2021-07-27] MEDS ORDERED: Piperacillin/Tazobactam 4.5 GM VIAL ONE (10:18)
[2021-07-27 11:40] LABS: SARS-CoV-2 NAA Rapid Test Not Detected (NotDetected)
[2021-07-27] MEDS ORDERED: Piperacillin/Tazobactam 3.375 GM VIAL ONE (15:29)
[2021-07-27] MEDS ORDERED: Sodium Chloride 0.9% 100 ML ONE (15:30)
[2021-07-27] MEDS ORDERED: Lidocaine 1% w/Epinephrine 1:100K 20 ML VIAL ONE (15:44)
[2021-07-27] MEDS ORDERED: Bupivacaine 0.25% HCL 30 ML VIAL ONE (15:44)
[2021-07-27] MEDS ORDERED: Fentanyl 100 MCG/2 ML VIAL ONE ×2 (15:53→17:08)
[2021-07-27] MEDS ORDERED: Glycopyrrolate 0.2 MG/ML 5 ML SYRINGE ONE (16:10)
[2021-07-27] MEDS ORDERED: Lidocaine 1% PF 5 ML VIAL ONE (16:10)
[2021-07-27] MEDS ORDERED: Albuterol Sulfate HFA (OR ONLY) ONE (16:10)
[2021-07-27] MEDS ORDERED: PROPOFOL 200 MG/20 ML VIAL ONE (16:10)
[2021-07-27] MEDS ORDERED: Rocuronium Bromide 10 MG/ML (10ML VIAL) ONE (16:10)
[2021-07-27] MEDS ORDERED: Dexamethasone 20 MG/5 ML VIAL ONE (16:10)
[2021-07-27] MEDS ORDERED: Succinylcholine 200 MG/10 ml SYRINGE FS ONE (16:10)
[2021-07-27] MEDS ORDERED: hydrALAZINE 20 MG/ML VIAL SLOW IVP PRN (17:03)
[2021-07-27] MEDS ORDERED: Morphine 4 MG/ML VIAL SLOW IVP PRN ×2 (17:03→18:00)
[2021-07-27] MEDS ORDERED: Dextrose 50% Abboject 50 ML SYRINGE SLOW IVP PRN (17:03)
[2021-07-27] MEDS ORDERED: Dextrose 5% in Water 1,000 ML IV PRN (17:03)
[2021-07-27] MEDS ORDERED: Morphine 2 MG/ML VIAL SLOW IVP PRN (17:03)
[2021-07-27] MEDS ORDERED: Acetaminophen 500 MG TAB PO PRN (17:06)
[2021-07-27] MEDS ORDERED: Promethazine HCl 25 MG/ML VIAL IM PRN (17:08)
[2021-07-27] MEDS ORDERED: Promethazine HCl 25 MG/ML VIAL IVPB PRN (17:08)
[2021-07-27] MEDS ORDERED: Ondansetron HCl/PF 4 MG/2 ML Vial IVP PRN (17:08)
[2021-07-27] MEDS ORDERED: HYDROcodone/Acetaminophen 5/325 mg Tablet ONE ×2 (19:07→23:06)
[2021-07-27 20:38] LABS: HBSAg Index 0.41 S/CO (0-0.99); Hep B Surf Ag Non-Reactive S/CO (NonReactive)
[2021-07-27] MEDS ORDERED: Lisinopril 10 MG TAB PO SCH (21:00)
[2021-07-27] MEDS ORDERED: Atorvastatin Calcium 40 MG TAB PO SCH (21:00)
[2021-07-27] MEDS ORDERED: NIFEdipine XL 60 MG TAB PO SCH (21:00)
[2021-07-28] MEDS ORDERED: Ferrous Sulfate 325 MG TAB PO SCH (08:00)
[2021-07-28] MEDS ORDERED: Alogliptin 25 MG TAB PO SCH (09:00)
[2021-07-28] MEDS ORDERED: Aspirin 81 mg Enteric Coated Tablet PO SCH (09:00)
[2021-07-28] MEDS ORDERED: Loratadine 10 MG TAB PO SCH (09:00)
[2021-07-28] MEDS ORDERED: Cholecalciferol (Vitamin D3) 400 UNITS TAB PO SCH (09:00)
[2021-07-28] MEDS ORDERED: Nebivolol HCl 5 MG TAB PO SCH (09:00)
== END 2021-07-27 23:35 | disposition home or self-care (01) ==
LOC: ERS 07:05 → SURG A 12:28
PROVIDERS: ADMIT Specialist; ATTEND Specialist
PROC: 0DTJ4ZZ Resection of Appendix, Percutaneous Endoscopic Approach (ICD-10-PCS; principal; 2021-07-27)
DX: K35.80 Unspecified acute appendicitis (principal); I13.2 Hypertensive heart and chronic kidney disease with heart failure and with stage 5 chronic kidney disease, or end stage renal disease; E11.22 Type 2 diabetes mellitus with diabetic chronic kidney disease; N18.6 End stage renal disease; I50.9 Heart failure, unspecified; D63.1 Anemia in chronic kidney disease; E11.43 Type 2 diabetes mellitus with diabetic autonomic (poly)neuropathy; K31.84 Gastroparesis; E28.2 Polycystic ovarian syndrome; I31.3 Pericardial effusion (noninflammatory); E66.9 Obesity, unspecified; Z68.41 Body mass index [BMI] 40.0-44.9, adult; Z79.82 Long term (current) use of aspirin; Z79.84 Long term (current) use of oral hypoglycemic drugs; Z79.899 Other long term (current) drug therapy; Z99.2 Dependence on renal dialysis; Z20.822 Contact with and (suspected) exposure to COVID-19
CPT/HCPCS: 36415; 74177; 80053; 81003; 81015; 81025; 83690; 85025; 87340; 88304; 90935; 96365; 96375; G0257; G0378; J1100; J2270; J2405; J2543; J2704; J3010; J3490; Q9967; S0020; U0002

== ENCOUNTER 2024-07-23 22:52 | Inpatient (IN) | payer MEDICARE, OTHER, SELFPAY ==
[2024-07-23 23:33] LABS: #Basophils 0.04 10x3/uL (0.0-0.2); %Basophils 0.2 % (0.0-1.0); %Eosinophils 1.3 % (0.0-10.0); %Lymphocytes 6.3 % (21.0-51.0); %Monocytes 3.8 % (0.0-10.0); %Neutrophils 87.8 % (42.0-75.0); Hematocrit 31.4 % (36.0-47.0); Hemoglobin 10.7 g/dL (12.0-16.0); Mean Corpuscular HGB CONC 34.1 g/dL (32.0-36.0); Mean Corpuscular Hemoglobin 30.9 pg (27.0-31.0); Mean Corpuscular Volume 90.8 fL (78.0-98.0); Mean Platelet Volume 12.2 fL (7.4-10.4); Platelet Count 228 10x3/uL (130-400); RBC Distribution Width 14.8 % (11.5-14.5); Red Blood Cell (RBC) Count 3.46 mill/uL (4.20-5.40)
[2024-07-23 23:53] LABS: ALT (SGPT) 13 U/L (8-55); AST (SGOT) 11 U/L (5-34); Albumin 3.7 g/dL (3.5-5.0); Alkaline Phosphatase 104 U/L (40-110); Anion Gap 20 mmol/L (10-20); BUN (Urea Nitrogen) 22 mg/dL (7.0-18.7); Bilirubin, Total 0.5 mg/dL (0.2-1.2); Calc. Creatinine Clearance 0 mL/min (70-130); Calcium 9.8 mg/dL (7.8-10.44); Carbon Dioxide 27 mmol/L (22-29); Chloride 94 mmol/L (98-107); Estimated GFR 7; Globulin 4.1 g/dL (2.4-3.5); Glucose 393 mg/dL (70-105); Lipase 43 U/L (8-78); Potassium 3.5 mmol/L (3.5-5.1); Protein, Total 7.8 g/dL (6.0-8.3); Sodium 137 mmol/L (136-145)
[2024-07-24] MEDS ORDERED: Ondansetron ODT 4 MG TAB ONE (00:26)
[2024-07-24] MEDS ORDERED: Morphine 4 MG/ML VIAL ONE (00:26)
[2024-07-24 01:32] LABS: Troponin I 0.042 ng/mL (< 0.028)
[2024-07-24 02:58] LABS: Troponin I 0.043 ng/mL (< 0.028)
[2024-07-24] MEDS ORDERED: Sodium Chloride 0.9% 100 ML ONE (03:00)
[2024-07-24] MEDS ORDERED: Piperacillin/Tazobactam 4.5 GM VIAL ONE (03:00)
[2024-07-24] MEDS ORDERED: hydrALAZINE 20 MG/ML VIAL ONE (03:58)
[2024-07-24] MEDS ORDERED: Dextrose 50% Abboject 50 ML SYRINGE SLOW IVP PRN (05:24)
[2024-07-24] MEDS ORDERED: Dextrose 5% in Water 1,000 ML IV PRN (05:24)
[2024-07-24] MEDS ORDERED: Insulin Lispro 100 UNIT/ML 10 ML VIAL SC PRN (05:24)
[2024-07-24] MEDS ORDERED: Glucagon 1 MG/ML KIT IM PRN (05:24)
[2024-07-24] MEDS ORDERED: Insulin Regular, Human 100 UNIT/ML 10 ML VIAL ONE (05:32)
[2024-07-24] MEDS ORDERED: Piperacillin/Tazobactam 4.5 GM in Sodium Chloride 0.9% 100 ML IVPB SCH (08:00)
[2024-07-24] MEDS ORDERED: Heparin 25,000 units/D5W 500 ML IVPB SCH (08:30)
[2024-07-24 08:36] LABS: Hemoglobin 9.5 g/dL (12.0-16.0); Platelet Count 209 10x3/uL (130-400)
[2024-07-24 08:48] LABS: Lactic Acid 1.66 mmol/L (0.5-2.2)
[2024-07-24] MEDS ORDERED: Heparin 5,000 UNITS/ML VIAL SC SCH (09:00)
[2024-07-24] MEDS ORDERED: Iopamidol 370 76% 100 ML VIAL ONE (09:17)
[2024-07-24] MEDS: Piperacillin/Tazobactam 3.375 GM in Sodium Chloride 0.9% 100 ML IVPB SCH (10:00)
[2024-07-24] MEDS: Ferrous Sulfate 325 MG TAB PO SCH (10:01)
[2024-07-24] MEDS: NIFEdipine XL 90 MG ER.TAB PO SCH (10:02)
[2024-07-24] MEDS: Carvedilol 25 MG TAB PO SCH (10:02)
[2024-07-24] MEDS: Atorvastatin Calcium 40 MG TAB PO SCH (10:02)
[2024-07-24] MEDS: Cholecalciferol (Vitamin D3) 400 UNITS TAB PO SCH (10:02)
[2024-07-24 10:08] VITALS: BMI 42.8
[2024-07-24] MEDS: HYDROcodone/Acetaminophen 10/325 mg Tablet PO PRN (10:34)
[2024-07-24] MEDS ORDERED: Insulin Regular, Human 100 UNIT/ML 10 ML VIAL SC PRN (10:43)
[2024-07-24 11:46] LABS: #Basophils 0.04 10x3/uL (0.0-0.2); %Basophils 0.3 % (0.0-1.0); %Eosinophils 0.7 % (0.0-10.0); %Lymphocytes 4.6 % (21.0-51.0); %Neutrophils 89.9 % (42.0-75.0); Hematocrit 28.1 % (36.0-47.0); Hemoglobin 9.1 g/dL (12.0-16.0); Mean Corpuscular HGB CONC 32.4 g/dL (32.0-36.0); Mean Corpuscular Hemoglobin 31.4 pg (27.0-31.0); Mean Corpuscular Volume 96.9 fL (78.0-98.0); Mean Platelet Volume 12.2 fL (7.4-10.4); Platelet Count 200 10x3/uL (130-400); RBC Distribution Width 14.8 % (11.5-14.5)
[2024-07-24 12:32] LABS: Hemoglobin A1c 9.8 % (4.0-6.0)
[2024-07-24] MEDS: Heparin 10,000 UNITS/ 10 ML VIAL SLOW IVP SCH (15:17)
[2024-07-24] MEDS: Heparin 25,000 units/D5W 500 ML IV SCH (15:35)
[2024-07-24] MEDS: Saxagliptin 2.5 MG TAB PO SCH (16:40)
[2024-07-24] MEDS: Sevelamer Carbonate 800 MG TAB PO SCH (16:40)
[2024-07-24] MEDS: Insulin Glargine 30 UNITS/0.3 ML VIAL SC SCH (19:44)
[2024-07-24 22:34] LABS: PTT 244.4 sec (22.9-36.1)
[2024-07-24] MEDS: FLU (Fluarix Triv) TS24-25(6MOS UP)/PF 45 MCG/0.5 ML Syringe IM ONE (23:13)
[2024-07-25] MEDS: Insulin Lispro 100 UNIT/ML 10 ML VIAL SC PRN (00:48)
[2024-07-25 04:49] LABS: #Basophils 0.05 10x3/uL (0.0-0.2); %Basophils 0.3 % (0.0-1.0); %Lymphocytes 7.3 % (21.0-51.0); %Monocytes 5.6 % (0.0-10.0); %Neutrophils 84.3 % (42.0-75.0); Hematocrit 27.4 % (36.0-47.0); Mean Corpuscular HGB CONC 32.8 g/dL (32.0-36.0); Mean Corpuscular Hemoglobin 31.4 pg (27.0-31.0); Mean Corpuscular Volume 95.5 fL (78.0-98.0); Mean Platelet Volume 12.3 fL (7.4-10.4); Platelet Count 199 10x3/uL (130-400); RBC Distribution Width 14.9 % (11.5-14.5); Red Blood Cell (RBC) Count 2.87 mill/uL (4.20-5.40)
[2024-07-25 05:31] LABS: Lactic Acid 1.14 mmol/L (0.5-2.2)
[2024-07-25 05:34] LABS: ALT (SGPT) 19 U/L (8-55); AST (SGOT) 14 U/L (5-34); Albumin 2.9 g/dL (3.5-5.0); Alkaline Phosphatase 81 U/L (40-110); Anion Gap 18 mmol/L (10-20); BUN (Urea Nitrogen) 35 mg/dL (7.0-18.7); Bilirubin, Total 0.6 mg/dL (0.2-1.2); Calc. Creatinine Clearance 11 mL/min (70-130); Calcium 9.1 mg/dL (7.8-10.44); Carbon Dioxide 27 mmol/L (22-29); Chloride 94 mmol/L (98-107); Estimated GFR 5; Globulin 3.5 g/dL (2.4-3.5); Glucose 205 mg/dL (70-105); Potassium 3.7 mmol/L (3.5-5.1); Protein, Total 6.4 g/dL (6.0-8.3); Sodium 135 mmol/L (136-145)
[2024-07-25] MEDS ORDERED: Sodium Chloride 0.9% (PF) 10 ML VIAL FS PRN (08:00)
[2024-07-25 08:25] LABS: HBSAB Concentration Less than 8.00 mIU/mL; HBsAg Index 0.26 S/CO (0-0.99); Hep B Core Total Ab NONREACTIVE (NonReactive); Hep B Surf AB NONREACTIVE (NonReactive); Hep B Surf Ag NONREACTIVE S/CO (NonReactive); Hep C IgG Ab NONREACTIVE S/CO (NonReactive); Hep C Index 0.14 S/CO (0-0.79)
[2024-07-25] MEDS ORDERED: Heparin 10,000 UNITS/ 10 ML VIAL ONE (08:39)
[2024-07-25 08:47] LABS: PTT 211.6 sec (22.9-36.1)
[2024-07-25] MEDS ORDERED: Saxagliptin 2.5 MG TAB PO SCH (09:00)
[2024-07-25] MEDS: Aspirin 81 mg Enteric Coated Tablet PO SCH (09:02)
[2024-07-25] MEDS: Pantoprazole 40 MG VIAL IVP SCH (09:03)
[2024-07-25] MEDS: Insulin Glargine 30 UNITS/0.3 ML VIAL SC SCH (09:03)
[2024-07-25] MEDS ORDERED: Epoetin (ESRD) 10,000 UNITS/ML VIAL IVP SCH (12:00)
[2024-07-25 13:16] LABS: Campy jejuni + coli by PCR Negative (Negative); STEC Shiga Toxin 1+2 Negative (Negative); Salmonella spp. by PCR Negative (Negative); Shigella spp + EIEC by PCR Negative (Negative)
[2024-07-25] MEDS: EPOETIN ALFA-EPBX (ESRD) 10,000 UNITS/ML VIAL IVP SCH (13:57)
[2024-07-25 19:23] LABS: PTT Greater than 250.0 sec (22.9-36.1)
[2024-07-26] MEDS: Insulin Lispro 100 UNIT/ML 10 ML VIAL SC PRN (05:37)
[2024-07-26 05:56] LABS: #Basophils 0.06 10x3/uL (0.0-0.2); %Basophils 0.4 % (0.0-1.0); %Eosinophils 2.2 % (0.0-10.0); %Monocytes 5.9 % (0.0-10.0); %Neutrophils 78.7 % (42.0-75.0); Hematocrit 26.7 % (36.0-47.0); Hemoglobin 8.8 g/dL (12.0-16.0); Mean Corpuscular Hemoglobin 31.3 pg (27.0-31.0); Mean Platelet Volume 12.4 fL (7.4-10.4); Platelet Count 213 10x3/uL (130-400); RBC Distribution Width 14.7 % (11.5-14.5); Red Blood Cell (RBC) Count 2.81 mill/uL (4.20-5.40)
[2024-07-26 06:09] LABS: ALT (SGPT) 15 U/L (8-55); AST (SGOT) 10 U/L (5-34); Albumin 2.6 g/dL (3.5-5.0); Alkaline Phosphatase 83 U/L (40-110); Anion Gap 14 mmol/L (10-20); BUN (Urea Nitrogen) 14 mg/dL (7.0-18.7); Bilirubin, Total 0.4 mg/dL (0.2-1.2); Calc. Creatinine Clearance 18 mL/min (70-130); Calcium 8.6 mg/dL (7.8-10.44); Carbon Dioxide 27 mmol/L (22-29); Chloride 97 mmol/L (98-107); Estimated GFR 8; Globulin 3.8 g/dL (2.4-3.5); Glucose 179 mg/dL (70-105); Potassium 3.4 mmol/L (3.5-5.1); Protein, Total 6.4 g/dL (6.0-8.3); Sodium 135 mmol/L (136-145)
[2024-07-26 06:43] LABS: PTT 228.8 sec (22.9-36.1)
[2024-07-26 08:38] LABS: Hematocrit 29.2 % (36.0-47.0); Hemoglobin 9.5 g/dL (12.0-16.0); Platelet Count 221 10x3/uL (130-400)
[2024-07-26] MEDS ORDERED: Potassium Chloride 20 MEQ in Premix 1 BAG IVPB SCH (09:00)
[2024-07-26] MEDS ORDERED: Iopamidol-370 76% 500 ML MDV (1 ML CHARGE) ONE (10:34)
[2024-07-26] MEDS ORDERED: GASTROGRAFIN 30 ML BOT ONE (10:34)
[2024-07-26] MEDS: Potassium Chloride 20 MEQ in Premix 1 BAG IVPB SCH (10:49)
[2024-07-26] MEDS: Ondansetron ODT 4 MG TAB PO PRN (22:44)
[2024-07-27 06:49] LABS: #Basophils 0.08 10x3/uL (0.0-0.2); %Basophils 0.5 % (0.0-1.0); %Eosinophils 1.8 % (0.0-10.0); %Lymphocytes 8.2 % (21.0-51.0); %Monocytes 6.2 % (0.0-10.0); %Neutrophils 82.1 % (42.0-75.0); Hematocrit 27.9 % (36.0-47.0); Hemoglobin 8.9 g/dL (12.0-16.0); Mean Corpuscular HGB CONC 31.9 g/dL (32.0-36.0); Mean Corpuscular Volume 97.2 fL (78.0-98.0); Mean Platelet Volume 11.7 fL (7.4-10.4); Platelet Count 236 10x3/uL (130-400); RBC Distribution Width 14.7 % (11.5-14.5); Red Blood Cell (RBC) Count 2.87 mill/uL (4.20-5.40)
[2024-07-27 07:15] LABS: ALT (SGPT) 12 U/L (8-55); AST (SGOT) 9 U/L (5-34); Albumin 2.6 g/dL (3.5-5.0); Alkaline Phosphatase 82 U/L (40-110); Anion Gap 16 mmol/L (10-20); BUN (Urea Nitrogen) 18 mg/dL (7.0-18.7); Bilirubin, Total 0.4 mg/dL (0.2-1.2); Calc. Creatinine Clearance 12 mL/min (70-130); Calcium 8.9 mg/dL (7.8-10.44); Carbon Dioxide 26 mmol/L (22-29); Chloride 94 mmol/L (98-107); Estimated GFR 5; Globulin 3.9 g/dL (2.4-3.5); Glucose 183 mg/dL (70-105); Potassium 4.5 mmol/L (3.5-5.1); Protein, Total 6.5 g/dL (6.0-8.3); Sodium 131 mmol/L (136-145)
[2024-07-27] MEDS ORDERED: Heparin 10,000 UNITS/ 10 ML VIAL ONE (09:55)
[2024-07-27] MEDS: hydrALAZINE 25 MG TAB PO PRN (10:26)
[2024-07-27] MEDS: Clopidogrel Bisulfate 75 MG TAB PO SCH (13:44)
[2024-07-27] MEDS: Acetaminophen 500 MG TAB PO PRN (15:14)
[2024-07-27 15:58] VITALS: TEMP 99.7
[2024-07-27] MEDS: Carvedilol 25 MG TAB PO SCH (16:30)
[2024-07-27 17:47] VITALS: BP 136/76
== END 2024-07-27 18:05 | disposition home or self-care (01) | DRG 393 ==
LOC: ERS 22:52 → SURG A 07-24 04:55 → OBSVTOIN 07-25 10:34
PROVIDERS: ADMIT Surgery; ATTEND Surgery
PROC: 5A1D70Z Performance of Urinary Filtration, Intermittent, Less than 6 Hours Per Day (ICD-10-PCS; principal; 2024-07-25)
DX: K55.9 Vascular disorder of intestine, unspecified (principal); N18.6 End stage renal disease; I12.0 Hypertensive chronic kidney disease with stage 5 chronic kidney disease or end stage renal disease; E78.5 Hyperlipidemia, unspecified; E11.22 Type 2 diabetes mellitus with diabetic chronic kidney disease; D63.8 Anemia in other chronic diseases classified elsewhere; I25.10 Atherosclerotic heart disease of native coronary artery without angina pectoris; Z99.2 Dependence on renal dialysis; Z79.82 Long term (current) use of aspirin; Z79.899 Other long term (current) drug therapy; Z79.84 Long term (current) use of oral hypoglycemic drugs; Z79.4 Long term (current) use of insulin; Z90.49 Acquired absence of other specified parts of digestive tract; Z95.5 Presence of coronary angioplasty implant and graft; Z98.891 History of uterine scar from previous surgery; E11.65 Type 2 diabetes mellitus with hyperglycemia
CPT/HCPCS: 36415; 36416; 74176; 74177; 80053; 83036; 83605; 83690; 84145; 84484; 85014; 85018; 85025; 85048; 85049; 85730; 86704; 86706; 86803; 87040; 87340; 87505; 87798; 93005; 96365; 96372; 96375; G0378; J0360; J1644; J1815; J2272; J2470; J2543; J3480; Q0162; Q5105; Q9963; Q9967

== ENCOUNTER 2024-08-03 16:19 | Emergency (ER) | payer MEDICARE, OTHER ==
[~2024-08-03 16:19] MED LIST: Iopamidol-370 76% 500 ML MDV (1 ML CHARGE) ONE
[2024-08-03 17:22] LABS: #Basophils 0.06 10x3/uL (0.0-0.2); %Basophils 0.6 % (0.0-1.0); %Lymphocytes 11.7 % (21.0-51.0); %Neutrophils 74.4 % (42.0-75.0); Hematocrit 28.5 % (36.0-47.0); Hemoglobin 9.1 g/dL (12.0-16.0); Mean Corpuscular HGB CONC 31.9 g/dL (32.0-36.0); Mean Corpuscular Hemoglobin 30.8 pg (27.0-31.0); Mean Corpuscular Volume 96.6 fL (78.0-98.0); Mean Platelet Volume 10.6 fL (7.4-10.4); Platelet Count 319 10x3/uL (130-400); RBC Distribution Width 14.9 % (11.5-14.5); Red Blood Cell (RBC) Count 2.95 mill/uL (4.20-5.40)
[2024-08-03 17:33] LABS: BHCG - Serum Negative (NEGATIVE); Pregs Control Background? CLEAR/WHITE (CLR/WHITE); Pregs Control Bar Appear? YES (CONTROL BAR)
[2024-08-03 17:42] LABS: ALT (SGPT) 21 U/L (8-55); AST (SGOT) 15 U/L (5-34); Alkaline Phosphatase 83 U/L (40-110); Anion Gap 17 mmol/L (10-20); BUN (Urea Nitrogen) 28 mg/dL (7.0-18.7); Bilirubin, Total 0.3 mg/dL (0.2-1.2); Calc. Creatinine Clearance 0 mL/min (70-130); Calcium 9.7 mg/dL (7.8-10.44); Carbon Dioxide 28 mmol/L (22-29); Chloride 96 mmol/L (98-107); Estimated GFR 5; Globulin 4.2 g/dL (2.4-3.5); Glucose 332 mg/dL (70-105); Lipase 70 U/L (8-78); Potassium 4.5 mmol/L (3.5-5.1); Protein, Total 7.2 g/dL (6.0-8.3); Sodium 136 mmol/L (136-145)
== END 2024-08-03 22:30 | disposition home or self-care (01) ==
LOC: ERS 16:19
DX: K92.1 Melena (principal); E11.22 Type 2 diabetes mellitus with diabetic chronic kidney disease; I12.0 Hypertensive chronic kidney disease with stage 5 chronic kidney disease or end stage renal disease; N18.6 End stage renal disease; Z99.2 Dependence on renal dialysis
CPT/HCPCS: 74177; 80053; 83690; 83880; 84703; 85025; 86850; 86900; 86901; 87086; 99285; Q9967; 36415; 82274

== ENCOUNTER 2024-08-07 19:08 | Emergency (ER) | payer MEDICARE, OTHER ==
[2024-08-07 19:50] LABS: #Basophils 0.08 10x3/uL (0.0-0.2); %Eosinophils 5.1 % (0.0-10.0); %Lymphocytes 12.4 % (21.0-51.0); %Monocytes 8.8 % (0.0-10.0); Hematocrit 23.3 % (36.0-47.0); Hemoglobin 7.4 g/dL (12.0-16.0); Mean Corpuscular HGB CONC 31.8 g/dL (32.0-36.0); Mean Corpuscular Volume 97.5 fL (78.0-98.0); Mean Platelet Volume 10.6 fL (7.4-10.4); Platelet Count 293 10x3/uL (130-400); RBC Distribution Width 14.7 % (11.5-14.5); Red Blood Cell (RBC) Count 2.39 mill/uL (4.20-5.40)
[2024-08-07 20:04] LABS: Prothrombin Time 12.7 sec (12.0-14.7)
[2024-08-07 20:05] LABS: PTT 30.4 sec (22.9-36.1)
[2024-08-07 20:06] LABS: ALT (SGPT) 18 U/L (8-55); AST (SGOT) 14 U/L (5-34); Albumin 3.3 g/dL (3.5-5.0); Alkaline Phosphatase 81 U/L (40-110); Anion Gap 17 mmol/L (10-20); BUN (Urea Nitrogen) 22 mg/dL (7.0-18.7); Bilirubin, Total 0.4 mg/dL (0.2-1.2); Calc. Creatinine Clearance 0 mL/min (70-130); Calcium 9.3 mg/dL (7.8-10.44); Carbon Dioxide 29 mmol/L (22-29); Chloride 94 mmol/L (98-107); Estimated GFR 6; Globulin 3.6 g/dL (2.4-3.5); Glucose 265 mg/dL (70-105); Potassium 4.5 mmol/L (3.5-5.1); Protein, Total 6.9 g/dL (6.0-8.3); Sodium 135 mmol/L (136-145)
[2024-08-07 20:12] LABS: Troponin I 0.018 ng/mL (< 0.028)
== END 2024-08-08 00:20 | disposition home or self-care (01) ==
LOC: ERS 19:08
DX: D64.9 Anemia, unspecified (principal); Z79.899 Other long term (current) drug therapy; Z79.82 Long term (current) use of aspirin; E11.22 Type 2 diabetes mellitus with diabetic chronic kidney disease; I12.9 Hypertensive chronic kidney disease with stage 1 through stage 4 chronic kidney disease, or unspecified chronic kidney disease; N18.4 Chronic kidney disease, stage 4 (severe)
CPT/HCPCS: 36430; 71045; 80053; 83880; 84484; 85025; 85610; 85730; 86850; 86870; 86900; 86901; 86920; 86921; 93005; P9016; 36415

== ENCOUNTER 2025-09-11 20:39 | Emergency (ER) | payer MEDICARE | END 2025-09-11 22:06 | disposition home or self-care (01) | LOC: ERS 20:39 | DX: M25.561 Pain in right knee (principal); I12.9 Hypertensive chronic kidney disease with stage 1 through stage 4 chronic kidney disease, or unspecified chronic kidney disease; E11.22 Type 2 diabetes mellitus with diabetic chronic kidney disease; N18.4 Chronic kidney disease, stage 4 (severe); Z99.2 Dependence on renal dialysis | CPT/HCPCS: 99283 ==